=== PATIENT | male | born 1945 | race Caucasian/White ===

== ENCOUNTER 2020-09-26 10:33 | Outpatient (RCR) | payer MEDICARE, SELFPAY | END 2020-09-26 23:59 | LOC: IMMUN 10:33 | PROVIDERS: PCP Internal Medicine; Visit Provider Family Medicine | DX: Z23 Encounter for immunization (principal) | CPT/HCPCS: 0011A; 0012A ==

== ENCOUNTER 2021-06-14 19:26 | Inpatient (IN) | payer MEDICARE, SELFPAY ==
[2021-06-14 19:27] VITALS: BP 188/84; PULSE 66; RESP 18; TEMP 36.8; O2SAT 96; BMI 27.1
[2021-06-14 19:31] VITALS: BP 188/84; PULSE 67; RESP 16; TEMP 36.8; O2SAT 97
--- NOTE | 2021-06-14 19:55 | RAD_ITS ---
STUDY: X-RAY - PELVIS REASON FOR EXAM: Male, 75 years old. Pain right hip fall TECHNIQUE: One view of the pelvis was obtained. COMPARISON: None. FINDINGS: There is angulated femoral neck fracture on the right. Femoral head is located. Left hip is intact. Pelvis is intact. RAD/Pelvis 1 or 2 Views IMPRESSION: Transcervical femoral fracture. Electronically Signed: Sarita Moreno MD at 20:35 EST Tel , Service support ,
--- NOTE | 2021-06-14 19:56 | EDS_ITS ---
HPI History of Present Illness Chief Complaint: Lower Extremity Injury Narrative Narrative: 75-year-old male presents with right hip pain. He states he slipped and fell landed on his right hip. He has been unable to ambulate under his own weight since then. He states the pain in his right hip radiates to the right knee medially. Patient denies head injury or LOC. Patient states he has never had orthopedic surgery on his right hip previously. He did have a right knee scope in the past. [facility] Medical History Cochlear hearing loss Home Medications cholecalciferol (vitamin D3) [Vitamin D3] 50 mcg PO DAILY 06/14/21 [History Last Taken Unknown] doxazosin 4 mg PO DAILY 06/14/21 [History Last Taken Unknown] famotidine 20 mg PO BID 06/14/21 [History Last Taken Unknown] felodipine 10 mg PO DAILY 06/14/21 [History Last Taken Unknown] finasteride 5 mg PO DAILY 06/14/21 [History Last Taken Unknown] losartan 50 mg PO DAILY 06/14/21 [History Last Taken Unknown] sildenafil 100 mg PO DAILY PRN 06/14/21 [History Last Taken Unknown] Allergy/AdvReac Type Severity Reaction Status Date / Time No Known Allergies Allergy Verified 06/14/21 19:30 Social History Smoking Status: Former smoker ROS ROS ED Constitutional Constitutional ED: Denies chills or fever(s) Eyes Eyes: Denies blurry vision or diplopia ENT ENT ED: Denies rhinorrhea or sore throat Cardiovascular Cardiovascular: Denies chest pain or palpitations Respiratory/Chest Respiratory/Chest: Denies cough or dyspnea Gastrointestinal Gastrointestinal: Denies abdominal pain, nausea or vomiting Genitourinary Genitourinary ED: Denies dysuria or hematuria Musculoskeletal Musculoskeletal: Reports other Details: Right hip pain Integumentary Denies Abrasions or rash Neurologic Neurologic: Denies headache(s) or paresthesias EXAM Physical Exam Const Vital Signs: 06/14/21 19:27 06/14/21 19:31 06/14/21 21:33 Temperature 98.2 F 98.2 F Temperature Source Temporal Temporal Pulse Rate 66 67 Respiratory Rate 18 16 17 Blood Pressure 188/84 H 188/84 H Blood Pressure Mean 118 118 Pulse Ox 96 97 Oxygen Delivery Method Room Air Room Air Positive well nourished HEENT normocephalic and atraumatic Eyes PERRL Chest Wall inspection of chest normal and palpation of chest normal Resp normal respiratory effort and clear to auscultation bilaterally Cardio regular rate and regular rhythm Extremity Extremity Narrative: Tenderness palpation over the right hip. Limited range of motion secondary to pain. No obvious deformity. Neuro oriented x3 Sensorium / Orientation: alert Psych mental status grossly normal Skin no wounds Rashes: no rashes MDM MDM MDM Narrative Medical decision making narrative: Patient presenting with right hip pain. He had a mechanical fall and is unable to ambulate. He has tenderness of the right hip which radiates to the mid femur. I did obtain images of the right hip and the right femur on my interpretation there is an acute fracture of the right femoral neck with some displacement. Radiologist agree. CBC shows a leukocytosis of 15.8. Hemoglobin regular able. Platelets are normal. Renal function electrolytes are normal. Since patient did have white blood cell count I did check a urinalysis due to his history of BPH and this is negative for infection. Patient does not have any respiratory symptoms. His WBC is likely reactive secondary to the fall. He states he has felt otherwise well before his fall. Patient discussed with Dr. Freeman from orthopedics. Patient will be admitted to the hospitalist. Impression: 1. Mechanical fall 2. Right hip fracture 3. Leukocytosis Lab Data Attestation: I reviewed the patient's lab results. Labs: Laboratory Results - last 24 hr 06/14/21 06/14/21 06/14/21 20:07 20:07 20:54 WBC 15.8 H RBC 4.25 L Hgb 13.0 Hct 38.8 L MCV 91.3 MCH 30.6 MCHC 33.5 RDW Std Deviation 47.4 H RDW Coeff of Ash 14.0 Plt Count 246 MPV 9.3 Immature Gran % (Auto) 0.300 Neut % (Auto) 87.1 H Lymph % (Auto) 5.8 L [place] % (Auto) 5.5 Eos % (Auto) 0.9 Baso % (Auto) 0.4 Absolute Neuts (auto) 13.8 H Absolute Lymphs (auto) 0.92 Nucleated RBC % 0 Sodium 138 Potassium 3.7 Chloride 108 H Carbon Dioxide 25.0 Anion Gap 5 BUN 19 H Creatinine 1.00 Estim Creat Clear Calc 75.35 Est GFR (MDRD) Af Amer 94 Est GFR (MDRD) Non-Af 78 BUN/Creatinine Ratio 19.1 Glucose 102 Calcium 9.0 Urine Color Yellow Urine Clarity Sl. Cloudy Urine pH 6.0 Ur Specific [place] 1.015 Urine Protein 15 H Urine Glucose (UA) Normal Urine Ketones Negative Urine Occult Blood 10 H Urine Nitrite Negative Urine Bilirubin Negative Urine Urobilinogen Normal Ur Leukocyte Esterase Negative Urine RBC 0 SEEN Urine WBC 0 SEEN Ur Squamous Epith Cells 0-5 SEEN Urine Bacteria 0 SEEN Urine Mucus 0 SEEN Radiography Diagnostic Testing: Clinical Impression(s) from Imaging Studies Pelvis X-Ray 06/14/21 19:55 IMPRESSION: Transcervical femoral fracture. Electronically Signed: Sarita Moreno MD at 20:35 EST Tel , Service support , Femur X-Ray 06/14/21 20:20 IMPRESSION: Partially displaced transcervical right femoral neck fracture. at 2049 Reported and signed by: Win Ruby MD Electronically Signed: Win Ruby MD at 20:48 EST Tel , Service support , Discharge Plan Triage Chief Complaint: Lower Extremity Injury ED Provider: Chaz Mejia Dx/Rx/DC Orders Prescriptions: No Action losartan 50 mg Tablet 50 mg PO DAILY RF: 0 sildenafil 100 mg Tablet 100 mg PO DAILY PRN (Reason: Sexual Activity) RF: 0 famotidine 20 mg Tablet 20 mg PO BID RF: 0 doxazosin 4 mg Tablet 4 mg PO DAILY RF: 0 felodipine 10 mg Tablet Extended Release 24 Hr 10 mg PO DAILY RF: 0 finasteride 5 mg Tablet 5 mg PO DAILY RF: 0 cholecalciferol (vitamin D3) [Vitamin D3] 50 mcg (2,000 unit) Capsule 50 mcg PO DAILY RF: 0 Primary Care Provider: José Luis Reza
[2021-06-14] MEDS: Morphine 4 MG/ML Syringe IV ×2 (20:09→21:42)
[2021-06-14] MEDS: Ondansetron 4 MG/2 ML Vial IV (20:09)
[2021-06-14 20:18] LABS: Absolute Lymphocyte Count 0.92 X10^3/uL (0.83-4.51); Absolute Neutrophil Count 13.8 X10^3/uL (2.0-7.7); Basophil# 0.06 X10^3/uL; Basophil% 0.4 % (0-1); Eosinophil# 0.14 X10^3/uL; Eosinophils% 0.9 % (0-5); Hematocrit 38.8 % (40-54); Lymphocyte # 0.92 X10^3/ul (0.83-4.51); Lymphocyte % 5.8 % (19-41); Mean Corp Hgb Conc 33.5 g/dL (32-36); Mean Corpuscular Hgb 30.6 pg (27.0-32.0); Mean Corpuscular Volume 91.3 fL (80-94); Mean Platelet Vol. 9.3 fl (6.2-12.0); Monocyte# 0.87 X10^3/uL; Monocyte% 5.5 % (0-10); NRBC Flagged by Analyzer 0 % (0-5); Neutrophil % 87.1 % (47-70); Platelet Count 246 K/mm3 (150-450); RBC Distribution Width SD 47.4 fl (35.1-43.9); Red Blood Count 4.25 M/mm3 (4.6-6.2); White Blood Count 15.8 K/mm3 (4.4-11.0)
--- NOTE | 2021-06-14 20:20 | RAD_ITS ---
HISTORY: Right hip pain status post fall EXAMINATION/TECHNIQUE: XR Femur Min 2 Views: Right COMPARISON: Concurrent AP view of pelvis FINDINGS: Partially displaced, transcervical right femoral neck fracture with secondary distal femoral varus deformity. Normal position of femoral head within the acetabular fossa. Right hip joint space preserved. Adequate alignment of right knee. Vascular calcifications noted. RAD/Femur Min 2 Views IMPRESSION: Partially displaced transcervical right femoral neck fracture. at 2049 Reported and signed by: Win Ruby MD Electronically Signed: Win Ruby MD at 20:48 EST Tel , Service support ,
[2021-06-14 20:37] LABS: Anion Gap 5 (5-15); BUN 19 mg/dL (7-18); BUN/Creat Ratio 19.1 RATIO (10-20); Chloride 108 mmol/L (98-107); EST Glomerular Filtration Rate 78 mL/min (>60); Est Glom Filt Rate - Afr Amer 94 mL/min (>60); Estimated Creatinine Clearance 75.35 ml/min; Glucose 102 mg/dL (74-106); Potassium 3.7 mmol/L (3.5-5.1); Sodium Level 138 mmol/L (136-145)
[2021-06-14 21:33] VITALS: RESP 17
[2021-06-14 21:46] LABS: Bacteria 0 SEEN /hpf (None Seen); Color, Urine Yellow (Yellow); Glucose, Dipstick Normal (Normal); Ketone-Dipstick Negative (Negative); Leukocyte Esterase-Dipstick Negative /ul (Negative); Mucous, Urine 0 SEEN /hpf (<or=2+); Nitrite-Dipstick Negative (Negative); Occult Blood-Urine 10 /ul (Negative); Protein-Dipstick 15 mg/dl (Negative); Red Blood Cells-Urine 0 SEEN /hpf (0-5); Specific Gravity, Urine 1.015 (1.002-1.030); Urine Bilirubin Dipstick Negative (Negative); Urine Clarity Sl. Cloudy (Clear); Urine Urobilinogen Normal (Normal); White Blood Cells 0 SEEN /hpf (0-5)
[2021-06-14 21:57] LABS: Squamous Epithelial Cells - UA 0-5 SEEN /hpf (0-5)
--- NOTE | 2021-06-14 22:24 | HP.PCM.HOS_ITS ---
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 Patient slipped and fell on wet concrete. He then developed pain in his right hip. The patient could not get up after he fell. With assistance of his he got up on his knees; he used a chair thereafter. Patient realized that he could not walk the stairs thereafter. He could not bear weight on his right leg. Paramedics were called and was brought to emergency department [facility] Medical History Cochlear hearing loss Hypertension Pancreatitis Sleep apnea Home Medications cholecalciferol (vitamin D3) [Vitamin D3] 50 mcg PO DAILY 06/14/21 [History Last Taken Unknown] doxazosin 4 mg PO DAILY 06/14/21 [History Last Taken Unknown] famotidine 20 mg PO BID 06/14/21 [History Last Taken Unknown] felodipine 10 mg PO DAILY 06/14/21 [History Last Taken Unknown] finasteride 5 mg PO DAILY 06/14/21 [History Last Taken Unknown] losartan 50 mg PO DAILY 06/14/21 [History Last Taken Unknown] sildenafil 100 mg PO DAILY PRN 06/14/21 [History Last Taken Unknown] Allergy/AdvReac Type Severity Reaction Status Date / Time No Known Allergies Allergy Verified 06/14/21 19:30 Family History (Updated 06/14/21 @ 22:[address] Pete Quiroz MD) Other Heart disease Surgical History History of cochlear implant History of herniorrhaphy Hx of arthroscopic knee surgery Social History Smoking Status: Former smoker ROS ROS Narrative Constitutional: Denies fever, chills, fatigue, anorexia and change in weight Eyes: Denies blurry vision, change in eye color, change in vision, discharge from eye(s), double vision, erythema, eye pain, loss of vision or other HEENT: Denies abnormal hearing, dysphagia, ear pain, epistaxis, headache(s), hearing loss, nasal congestion, nasal discharge, post nasal drip, sinus pressure, sore throat or other Cardiovascular: Denies chest pain or palpitations. Denies dyspnea on exertion, orthopnea and paroxysmal nocturnal dyspnea Respiratory/Chest: Denies cough, excessive phlegm production, shortness of breath with exertion and wheezing Gastrointestinal: Denies abdominal pain, coffee ground emesis, constipation, diarrhea, dyspepsia, hematemesis, hematochezia, loose stools, melena, nausea, vomiting or other Genitourinary: Denies burning urination, difficulty urinating, dysuria, hematuria, nocturia, urinary frequency, urinary hesitancy, urinary incontinence, urinary urgency or other Musculoskeletal: Right hip pain. Denies myalgia. Neurologic: Denies abnormal gait, abnormal speech, confusion, disequilibrium, dizziness, focal weakness, headache(s), numbness, paresthesias, seizure-like activity, seizures, syncope, tingling, tremor(s) or other Psychiatric: Denies anxiety, depression, homicidal ideation, suicidal ideation or other Endocrinology: Denies change in body appearance, cold intolerance, excessive sweating, heat intolerance, polydipsia, polyuria or other Hematologic/Lymphatic: Denies anemia, easy bleeding, easy bruising, lympha denopathy or other Integumentary: Denies rashes Allergic/Immunologic: Denies rhinitis, hives, eczema, asthma or other Vital Signs Vital Signs Vital Signs: 06/14/21 19:27 06/14/21 19:31 06/14/21 21:33 Temperature 98.2 F 98.2 F Temperature Source Temporal Temporal Pulse Rate 66 67 Respiratory Rate 18 16 17 Blood Pressure 188/84 H 188/84 H Blood Pressure Mean 118 118 Pulse Ox 96 97 Oxygen Delivery Method Room Air Room Air Weight Weight: 96 kg Body Mass Index (BMI) 27.1 Physical Exam Narrative Physical exam: General: Well-nourished, well-developed. Head: Normocephalic, atraumatic, no tenderness Eyes: PERRLA, EOMI ENT, no trauma, moist mucous membranes, no rhinorrhea Neck: Nontender, full range of motion, no spinal tenderness, deformities, step- off CVS: Regular rate and rhythm. S1-S2 present. No murmur, gallop or rub. Respiratory : clear to auscultation bilaterally, chest wall nontender, no wheezing Abdomen: Soft, nontender, nondistended, normal bowel sounds, no masses : Deferred Back: Nontender, no CVA tenderness, no midline spinal tenderness, deformities, step-offs Extremities: Nontender full range of motion, no trauma Skin: Normal color, no trauma, abrasions Neuro: Alert, oriented, cranial nerves II through XII grossly intact; except patient is hard of hearing. Psychiatry: Normal mood. Normal affect. Not depressed. Not anxious. Results Lab / Micro Data Result Diagrams: 06/14/21 20:07 06/14/21 20:07 Labs: Laboratory Results - last 24 hr 06/14/21 20:07: WBC 15.8 H, RBC 4.25 L, Hgb 13.0, Hct 38.8 L, MCV 91.3, MCH 30.6, MCHC 33.5, RDW Std Deviation 47.4 H, RDW Coeff of Ash 14.0, Plt Count 246, MPV 9.3, Immature Gran % (Auto) 0.300, Neut % (Auto) 87.1 H, Lymph % (Auto) 5.8 L, [place] % (Auto) 5.5, Eos % (Auto) 0.9, Baso % (Auto) 0.4, Absolute Neuts (auto) 13.8 H, Absolute Lymphs (auto) 0.92, Nucleated RBC % 0 06/14/21 20:07: Sodium 138, Potassium 3.7, Chloride 108 H, Carbon Dioxide 25.0, Anion Gap 5, BUN 19 H, Creatinine 1.00, Estim Creat Clear Calc 75.35, Est GFR (MDRD) Af Amer 94, Est GFR (MDRD) Non-Af 78, BUN/Creatinine Ratio 19.1, Glucose 102, Calcium 9.0 06/14/21 20:54: Urine Color Yellow, Urine Clarity Sl. Cloudy, Urine pH 6.0, Ur Specific [place] 1.015, Urine Protein 15 H, Urine Glucose (UA) Normal, Urine Ketones Negative, Urine Occult Blood 10 H, Urine Nitrite Negative, Urine Bilirubin Negative, Urine Urobilinogen Normal, Ur Leukocyte Esterase Negative, Urine RBC 0 SEEN, Urine WBC 0 SEEN, Ur Squamous Epith Cells 0-5 SEEN, Urine Bacteria 0 SEEN, Urine Mucus 0 SEEN Radiology Impression Pelvis X-Ray 06/14/21 19:55 IMPRESSION: Transcervical femoral fracture. Electronically Signed: Sarita Moreno MD at 20:35 EST Tel , Service support , Femur X-Ray 06/14/21 20:20 IMPRESSION: Partially displaced transcervical right femoral neck fracture. at 2049 Reported and signed by: Win Ruby MD Electronically Signed: Win Ruby MD at 20:48 EST Tel , Service support , Assessment & Plan Assessment/Plan (1) Femoral neck fracture: QUALIFIERS: Encounter type: initial encounter Fracture type: closed Laterality: right Qualified Code(s): S72.001A - Fracture of unspecified part of neck of right femur, initial encounter for closed fracture PLAN: Partially displaced transcervical right femoral neck fracture. A femoral x-ray was independently interpreted and agree radiologist interp retation a partial displaced transcervical right femoral neck fracture. Pelvis x-ray was also independently interpreted and I agree with radiologist interpretation. Emergent department doctor discussed the case with Dr. Freeman. Inpatient consult for orthopedic surgery. Morphine IV and Tylenol as needed ordered. Bowel protocol and antiemetics IV ordered. Keep n.p.o. While n.p.o. lactated Ringer's ordered. Check vitamin D level. Preoperative EKG unremarkable CBC showed white count of 15.8 likely reactive. Trend. Hypertension Blood pressure is not within goal Home blood pressure medication continued. As needed hydralazine ordered. Trend blood pressure and adjust blood pressure medications. ACS NSQIP surgical risk calculator with below surgical risk. Please see paper printout. BPH: Cardura continued GERD: Famotidine continued DVT prophylaxis: SCD ordered Charges/Coding Visit Charges Inpatient E&M: 52987 Init Hosp L3
--- NOTE | 2021-06-14 22:26 | EKG12_ITS ---
Test Reason : PRE-OP Blood Pressure : / mmHG Vent. Rate : 070 BPM Atrial Rate : 070 BPM P-R Int : 188 ms QRS Dur : 122 ms QT Int : 446 ms P-R-T Axes : 033 -59 030 degrees QTc Int : 481 ms Normal sinus rhythm Left axis deviation Inferior infarct , age undetermined Abnormal ECG Confirmed by HORTENCIA DELGADO ([id number]), video tape editor JOSE PAULSON ([id number]) on 06/15/2021 11:11:38 AM Referred By: LISA Confirmed By:HORTENCIA DELGADO
[2021-06-14 22:40] VITALS: BP 148/68; PULSE 80; RESP 17; TEMP 37.1; O2SAT 98
--- NOTE | 2021-06-14 22:40 | ED.RN ---
Was already medicated for pain --
--- NOTE | 2021-06-14 22:54 | ED.RN ---
Morphoine had duplicate order - only 2 total doses given in ER
[2021-06-14 23:53] VITALS: O2SAT 98
[2021-06-15] VITALS (12 sets, daily range): BP systolic 134–182; BP diastolic 68–86; PULSE 71–83; RESP 16–18; TEMP 36.6–37.4; O2SAT 92–98; BMI 26.9
--- NOTE | 2021-06-15 00:41 | PCS.PANDOC ---
PANDEMIC DOCUMENTATION INITIATED: Date: 03/16/2021 Time: 190
[2021-06-15] MEDS: Morphine 2 MG/ML Syringe IV ×5 (00:56→14:09)
[2021-06-15] MEDS: 0.9% Saline Lock 10 ML Syringe IV ×2 (00:57→05:30)
[2021-06-15] MEDS: Lactated Ringers 1,000 ML 50 ML IV (00:58)
[2021-06-15 07:18] LABS: Absolute Lymphocyte Count 0.83 X10^3/uL (0.83-4.51); Absolute Neutrophil Count 8.7 X10^3/uL (2.0-7.7); Basophil# 0.07 X10^3/uL; Basophil% 0.7 % (0-1); Eosinophil# 0.15 X10^3/uL; Eosinophils% 1.4 % (0-5); Hematocrit 38.9 % (40-54); Lymphocyte # 0.83 X10^3/ul (0.83-4.51); Lymphocyte % 7.8 % (19-41); Mean Corp Hgb Conc 33.4 g/dL (32-36); Mean Corpuscular Hgb 30.3 pg (27.0-32.0); Mean Corpuscular Volume 90.7 fL (80-94); Mean Platelet Vol. 9.3 fl (6.2-12.0); Monocyte# 0.88 X10^3/uL; Monocyte% 8.2 % (0-10); NRBC Flagged by Analyzer 0 % (0-5); Neutrophil # 8.71 X10^3/uL (2.7-7.7); Neutrophil % 81.6 % (47-70); Platelet Count 247 K/mm3 (150-450); RBC Distribution Width SD 47.1 fl (35.1-43.9); Red Blood Count 4.29 M/mm3 (4.6-6.2); White Blood Count 10.7 K/mm3 (4.4-11.0)
[2021-06-15 07:44] LABS: Anion Gap 5 (5-15); BUN 15 mg/dL (7-18); BUN/Creat Ratio 15.9 RATIO (10-20); Calcium,Total 8.7 mg/dL (8.5-10.1); Chloride 107 mmol/L (98-107); Creatinine, Serum 0.94 mg/dL (0.70-1.30); EST Glomerular Filtration Rate 83 mL/min (>60); Est Glom Filt Rate - Afr Amer 100 mL/min (>60); Estimated Creatinine Clearance 77.92 ml/min; Glucose 98 mg/dL (74-106); Potassium 3.8 mmol/L (3.5-5.1); Sodium Level 138 mmol/L (136-145)
[2021-06-15] MEDS: amLODIPine 10 MG Tablet PO (08:40)
[2021-06-15] MEDS: Losartan Potassium 50 MG Tablet PO (08:40)
[2021-06-15] MEDS: Doxazosin 4 MG Tablet PO (08:40)
[2021-06-15 09:04] LABS: Vitamin D,25 Hydroxy 37.7 ng/mL
--- NOTE | 2021-06-15 11:00 | CASEMGMT ---
ILIANA STEVENS Face to Face with patient for initial transition planning/care coordination assessment. RN HILDA introduced self and role at [facility]. Patient lying in bed, alert and oriented, at bedside. Patient willing to participate in assessment and is able to answer all questions appropriately. Care providers, pharmacy, and demographics verified. Patient wishes to discharge home but would be willing to go to rehab unit if needed. Patient states he has no further needs or concerns at this time. CM to follow for discharge planning needs that may arise. PCP: [facility] Specialists: assistant prosecuting attorney and intelligence specialist at [place] Preferred Pharmacy: [place] in [place] Insurance: [facility] Prescription Benefit: none Living Will/HPOA: none LNOK: Living Arrangements: patient lives with in a 2 story home with access for bed and bath on first floor. Patient was independent at home. Transportation: DME/HHC: Patient has raised toilet at home. No previous HHC or SNF. Will monitor for need for Rehab unit vs SNF vs HHC. Disposition Plan: TBD pending progress with therapy Alexandra GILBERT, RN, CM
--- NOTE | 2021-06-15 12:25 | CONS.ORTHO ---
HPI Consult Data Date of Consult: 06/15/21 HPI Narrative HPI Narrative: DORIS DAVIS, is a 75 M who presents with right hip pain and inability to ambulate after a slip and fall getting out of the hot tub yesterday at his home where he resides with his . He reported significant pain with attempted ambulation although he did attempt to bear weight using a chair as a walker. He was brought to [facility] emergency department where x-rays revealed a displaced right femoral neck fracture. He was admitted under the service of the hospitalist. I was consulted from the emergency department. Patient is a community ambulator without assistive device. Denies any antecedent hip or groin pain. Denies prior treatment for osteoarthritis of the hip. 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 [facility]LY [facility] Medical History Cochlear hearing loss Hypertension Pancreatitis Sleep apnea Home Medications cholecalciferol (vitamin D3) [Vitamin D3] 50 mcg PO DAILY 06/14/21 [History Last Taken Unknown] doxazosin 4 mg PO DAILY 06/14/21 [History Last Taken Unknown] famotidine 20 mg PO BID 06/14/21 [History Last Taken Unknown] felodipine 10 mg PO DAILY 06/14/21 [History Last Taken Unknown] finasteride 5 mg PO DAILY 06/14/21 [History Last Taken Unknown] losartan 50 mg PO DAILY 06/14/21 [History Last Taken Unknown] sildenafil 100 mg PO DAILY PRN 06/14/21 [History Last Taken Unknown] Allergy/AdvReac Type Severity Reaction Status Date / Time No Known Allergies Allergy Verified 06/14/21 19:30 Family History (Updated 06/14/21 @ 22:[address] Pete Quiroz MD) Other Heart disease Surgical History History of cochlear implant History of herniorrhaphy Hx of arthroscopic knee surgery Social History Smoking Status: Former smoker ROS ROS Narrative 10 point review of systems obtained, negative unless otherwise noted in HPI. Vital Signs Vital Signs Vital Signs: 06/14/21 19:27 06/14/21 19:31 06/14/21 21:33 Temperature 98.2 F 98.2 F Temperature Source Temporal Temporal Pulse Rate 66 67 Respiratory Rate 18 16 17 Respiratory Effort Respiratory Depth Respiratory Pattern Blood Pressure 188/84 H 188/84 H Blood Pressure [BP] Blood Pressure Mean 118 118 Blood Pressure Mean [BP] Blood Pressure Source Blood Pressure Source [BP] Blood Pressure Position Blood Pressure Position [BP] Blood Pressure Location Blood Pressure Location [BP] Pulse Ox 96 97 Oxygen Delivery Method Room Air Room Air 06/14/21 22:40 06/14/21 23:53 06/15/21 00:35 Temperature 98.7 F 98.3 F Temperature Source Oral Oral Pulse Rate 80 72 Respiratory Rate 17 18 Respiratory Effort Respiratory Depth Respiratory Pattern Blood Pressure 148/68 H 179/84 H Blood Pressure [BP] Blood Pressure Mean 94 115 Blood Pressure Mean [BP] Blood Pressure Source Blood Pressure Source [BP] Blood Pressure Position Blood Pressure Position [BP] Blood Pressure Location Blood Pressure Location [BP] Pulse Ox 98 98 97 Oxygen Delivery Method Room Air Room Air Room Air 06/15/21 05:25 06/15/21 08:12 06/15/21 08:27 Temperature 99.4 F H 98.2 F Temperature Source Oral Oral Pulse Rate 71 80 Respiratory Rate 16 16 Respiratory Effort Normal Respiratory Depth Normal Respiratory Pattern Normal Blood Pressure 182/84 H 168/84 H Blood Pressure [BP] Blood Pressure Mean 116 112 Blood Pressure Mean [BP] Blood Pressure Source Monitor Blood Pressure Source [BP] Blood Pressure Position Semi-Fowlers Blood Pressure Position [BP] Blood Pressure Location Right Arm Blood Pressure Location [BP] Pulse Ox 93 93 Oxygen Delivery Method Room Air Room Air Room Air 06/15/21 10:32 Temperature Temperature Source Pulse Rate 80 Respiratory Rate 16 Respiratory Effort Respiratory Depth Respiratory Pattern Blood Pressure Blood Pressure [BP] 164/73 H Blood Pressure Mean Blood Pressure Mean [BP] 103 Blood Pressure Source Blood Pressure Source [BP] Monitor Blood Pressure Position Blood Pressure Position [BP] Semi-Fowlers Blood Pressure Location Blood Pressure Location [BP] Right Arm Pulse Ox 92 Oxygen Delivery Method Room Air Weight Weight: 204 lb 6.4 oz Body Mass Index (BMI) 26.9 Physical Exam Narrative General -A&Ox3, NAD, appears stated age. Vital signs stable, afebrile. Respiratory -normal work of breathing, no intercostal retractions. CV -pulses regular, brisk capillary refill ?4 limbs. Abdomen-soft, nontender, nondistended. No guarding, rigidity, rebound tenderness. Musculoskeletal/neurologic -full range of motion nontender throughout bilateral upper extremities, left lower extremity with full sensation and strength in all dermatomes and myotomes. No midline cervical tenderness. Right lower extremity-right lower extremity shortened, externally rotated and abducted. Pain with logroll of the right lower extremity. Nontender throughout the right knee femoral shaft, tibial shaft and right foot/ankle. Brisk capillary refill. Sensation intact light touch L3-S1 dermatomes. DF, PF, EHL intact. DP, PT 2+. Pelvis is stable, nontender. Skin is intact without lacerations, abrasions. No ecchymosis noted. Lab / Micro Data Result Diagrams: 06/15/21 06:26 06/15/21 06:26 Labs: Laboratory Results - last 24 hr 06/14/21 20:07: WBC 15.8 H, RBC 4.25 L, Hgb 13.0, Hct 38.8 L, MCV 91.3, MCH 30.6, MCHC 33.5, RDW Std Deviation 47.4 H, RDW Coeff of Ash 14.0, Plt Count 246, MPV 9.3, Immature Gran % (Auto) 0.300, Neut % (Auto) 87.1 H, Lymph % (Auto) 5.8 L, [place] % (Auto) 5.5, Eos % (Auto) 0.9, Baso % (Auto) 0.4, Absolute Neuts (auto) 13.8 H, Absolute Lymphs (auto) 0.92, Nucleated RBC % 0 06/14/21 20:07: Sodium 138, Potassium 3.7, Chloride 108 H, Carbon Dioxide 25.0, Anion Gap 5, BUN 19 H, Creatinine 1.00, Estim Creat Clear Calc 75.35, Est GFR (MDRD) Af Amer 94, Est GFR (MDRD) Non-Af 78, BUN/Creatinine Ratio 19.1, Glucose 102, Calcium 9.0 06/14/21 20:54: Urine Color Yellow, Urine Clarity Sl. Cloudy, Urine pH 6.0, Ur Specific [place] 1.015, Urine Protein 15 H, Urine Glucose (UA) Normal, Urine Ketones Negative, Urine Occult Blood 10 H, Urine Nitrite Negative, Urine Bilirubin Negative, Urine Urobilinogen Normal, Ur Leukocyte Esterase Negative, Urine RBC 0 SEEN, Urine WBC 0 SEEN, Ur Squamous Epith Cells 0-5 SEEN, Urine Bacteria 0 SEEN, Urine Mucus 0 SEEN 06/15/21 06:26: WBC 10.7, RBC 4.29 L, Hgb 13.0, Hct 38.9 L, MCV 90.7, MCH 30.3, MCHC 33.4, RDW Std Deviation 47.1 H, RDW Coeff of Ash 14.0, Plt Count 247, MPV 9.3, Immature Gran % (Auto) 0.300, Neut % (Auto) 81.6 H, Lymph % (Auto) 7.8 L, [place] % (Auto) 8.2, Eos % (Auto) 1.4, Baso % (Auto) 0.7, Absolute Neuts (auto) 8.7 H, Absolute Lymphs (auto) 0.83, Nucleated RBC % 0 06/15/21 06:26: Sodium 138, Potassium 3.8, Chloride 107, Carbon Dioxide 26.0, Anion Gap 5, BUN 15, Creatinine 0.94, Estim Creat Clear Calc 77.92, Est GFR (MDRD) Af Amer 100, Est GFR (MDRD) Non-Af 83, BUN/Creatinine Ratio 15.9, Glucose 98, Calcium 8.7 06/15/21 07:48: Vitamin D 25-Hydroxy 37.7 Micro: Microbiology 06/14/21 23:56 Nasal Secretion SARS-CoV-2 Antigen (Rapid) - Final Radiology Impression Pelvis X-Ray 06/14/21 19:55 IMPRESSION: Transcervical femoral fracture. Electronically Signed: Sarita Moreno MD at 20:35 EST Tel , Service support , Femur X-Ray 06/14/21 20:20 IMPRESSION: Partially displaced transcervical right femoral neck fracture. at 204 Reported and signed by: Win Ruby MD Electronically Signed: Win Ruby MD at 20:48 EST Tel , Service support , Assessment & Plan Assessment/Plan (1) Femoral neck fracture: QUALIFIERS: Encounter type: initial encounter Fracture type: closed Laterality: right Qualified Code(s): S72.001A - Fracture of unspecified part of neck of right femur, initial encounter for closed fracture PLAN: -Patient sustained a displaced right femoral neck fracture, closed injury and neurovascularly intact -Patient is preoperatively optimized from a medical standpoint. -I recommended surgical intervention in the form of right hip hemiarthroplasty. I reviewed the risks, benefits, alternatives procedure with the patient at length. He agreed to proceed. Risks include but are not limited to bleeding, infection, loss of life or limb, instability, persistent pain, need for additional surgery, failure of orthopedic hardware, neurovascular injury, DVT or PE, limb length discrepancy. -N.p.o., maintenance IV fluids -Ancef 2 g on-call to the OR -Type and screen Thank you for this consultation.
--- NOTE | 2021-06-15 15:30 | HIP_PTH ---
PATIENT: DORIS DAVIS LOC: MS2 U#:[id number] AGE/SX: 75/M ROOM: [facility] RE06/14/[address]: Dr. Artem Bal DO : 1945 BED: 1 DIS: 06/17/2021 SPEC #: [id number] RECD: 06/16/21 07:52 STATUS: PAOLA RERiki #: [id number] EDD: 06/15/21 15:[address]: Bull Freeman DEPT: SURGICAL PATHOLOGY RECD BY: Mame Mata ENTERED: 06/16/21 08:30 SP TYPE: TOTAL HIP OTHR DR: MD Dr. Win Melendez DO Dr. Nicholas Spittle, DO Dr. Victor Velasquez, MD Tissues: Hip, NOS Procedures: Decalcification bone/plaque Surgery Specimen Level IV Comments: @ Ordering doctor for DEC edited from to @ carol MCCARTHY at 06/16/21 141 @ Ordering doctor for SUIV edited from to @ carol MCCARTHY at 06/16/21 141 @ Submitting doctor edited from to @ carol MCCARTHY at 06/16/21 1417 HEADER OPERATION: Right hip hemiarthroplasty PRE-OP DIAGNOSIS: Femoral neck fracture TISSUE SUBMITTED: Right femoral head MICROSCOPIC DIAGNOSIS Right femoral head fracture, total hip resection: Consistent with organizing fracture callus. Mild synovial hyperplasia. AM:alma delia 06/19/2021 MICROSCOPIC DESCRIPTION Slides are reviewed. GROSS DESCRIPTION Received is one container labeled with the patient's name and designated right femoral head. The specimen consists of a peñaloza femoral head measuring 5 x 5 x 4.5 cm. The articular surface is smooth. Resection margin is irregular and hemorrhagic. A piece of soft tissue is noted on the top of femoral head measuring 2 x 1 x 0.5 cm. Also present in the specimen container are multiple detached pieces of bone measuring in aggregate 4.5 x 4 x 1.5 cm. Landscape H[employer] Instructor sections are submitted in three cassettes as follows: 1 - soft tissue, entirely submitted, 2 - detached pieces of bone, 3 - femoral head. Cassettes 2 and 3 are submitted after decalcification. / SJ:alma delia 06/16/21 TC:5 CPT: 77139, 01370
[2021-06-15] MEDS: Cefazolin 2 GM in 0.9% Normal Saline 100 ML IV (15:44)
[2021-06-15] MEDS: Bupivacaine Mpf 0.5% 30 ML VIAL (17:17)
--- NOTE | 2021-06-15 17:43 | PCM.PN.HOSP ---
Subjective Subjective Patient was seen and examined earlier today, today he underwent a right hip hemiarthroplasty. Patient was seen and examined before surgery and appeared to be medically stable. He did complain of pain in his right leg due to muscle spasm Objective Data Objective Data Vital Signs: Vital Signs Temp Pulse Resp BP Pulse Ox 98.2 F 78 18 169/71 H 94 06/15/21 13:59 06/15/21 13:59 06/15/21 13:59 06/15/21 13:59 06/15/21 13:59 Oxygen Delivery Method Room Air Weight: 92.714 kg Body Mass Index (BMI) 26.9 Intake & Output: Intake and Output for Last 24 Hours 06/13/21 06/14/21 06/15/21 23:59 23:59 23:59 Intake Total 160 / 160 Output Total 2600 / 2600 Balance -2440 / -2440 Lab / Micro Data Result Diagrams: 06/15/21 06:26 06/15/21 06:26 Labs: Laboratory Results - last 24 hr 06/14/21 20:07: WBC 15.8 H, RBC 4.25 L, Hgb 13.0, Hct 38.8 L, MCV 91.3, MCH 30.6, MCHC 33.5, RDW Std Deviation 47.4 H, RDW Coeff of Ash 14.0, Plt Count 246, MPV 9.3, Immature Gran % (Auto) 0.300, Neut % (Auto) 87.1 H, Lymph % (Auto) 5.8 L, [place] % (Auto) 5.5, Eos % (Auto) 0.9, Baso % (Auto) 0.4, Absolute Neuts (auto) 13.8 H, Absolute Lymphs (auto) 0.92, Nucleated RBC % 0 06/14/21 20:07: Sodium 138, Potassium 3.7, Chloride 108 H, Carbon Dioxide 25.0, Anion Gap 5, BUN 19 H, Creatinine 1.00, Estim Creat Clear Calc 75.35, Est GFR (MDRD) Af Amer 94, Est GFR (MDRD) Non-Af 78, BUN/Creatinine Ratio 19.1, Glucose 102, Calcium 9.0 06/14/21 20:54: Urine Color Yellow, Urine Clarity Sl. Cloudy, Urine pH 6.0, Ur Specific [place] 1.015, Urine Protein 15 H, Urine Glucose (UA) Normal, Urine Ketones Negative, Urine Occult Blood 10 H, Urine Nitrite Negative, Urine Bilirubin Negative, Urine Urobilinogen Normal, Ur Leukocyte Esterase Negative, Urine RBC 0 SEEN, Urine WBC 0 SEEN, Ur Squamous Epith Cells 0-5 SEEN, Urine Bacteria 0 SEEN, Urine Mucus 0 SEEN 06/15/21 06:26: WBC 10.7, RBC 4.29 L, Hgb 13.0, Hct 38.9 L, MCV 90.7, MCH 30.3, MCHC 33.4, RDW Std Deviation 47.1 H, RDW Coeff of Ash 14.0, Plt Count 247, MPV 9.3, Immature Gran % (Auto) 0.300, Neut % (Auto) 81.6 H, Lymph % (Auto) 7.8 L, [place] % (Auto) 8.2, Eos % (Auto) 1.4, Baso % (Auto) 0.7, Absolute Neuts (auto) 8.7 H, Absolute Lymphs (auto) 0.83, Nucleated RBC % 0 06/15/21 06:26: Sodium 138, Potassium 3.8, Chloride 107, Carbon Dioxide 26.0, Anion Gap 5, BUN 15, Creatinine 0.94, Estim Creat Clear Calc 77.92, Est GFR (MDRD) Af Amer 100, Est GFR (MDRD) Non-Af 83, BUN/Creatinine Ratio 15.9, Glucose 98, Calcium 8.7 06/15/21 07:48: Vitamin D 25-Hydroxy 37.7 06/15/21 14:14: Blood Type B POSITIVE, Antibody Screen NEGATIVE Micro: Microbiology 06/14/21 23:56 Nasal Secretion SARS-CoV-2 Antigen (Rapid) - Final Radiography Diagnostic Testing: Radiology Impression Pelvis X-Ray 06/14/21 19:55 IMPRESSION: Transcervical femoral fracture. Electronically Signed: Sarita Moreno MD at 20:35 EST Tel , Service support , Femur X-Ray 06/14/21 20:20 IMPRESSION: Partially displaced transcervical right femoral neck fracture. at 2049 Reported and signed by: Win Ruby MD Electronically Signed: Win Ruby MD at 20:48 EST Tel , Service support , Physical Exam Const alert, oriented x3, no apparent distress and healthy appearing General Appearance: cooperative, well kempt and well developed Orientation / Consciousness: awake, oriented to person, oriented to place and oriented to time HEENT normocephalic and moist oral mucous membranes Eyes PERRL, EOMs intact bilaterally and conjunctivae normal Neck nuchal rigidity, supple, no JVD, thyroid normal and no carotid bruits General: trachea midline Resp normal respiratory effort and clear to auscultation bilaterally Auscultation: Negative for rales, rhonchi or wheezes Cardio regular rate, regular rhythm, no murmurs, no rub and no gallops GI normal to inspection, nondistended, normoactive bowel sounds, soft to palpation, non-tender and non-distended Extremity no clubbing, cyanosis or edema Skin no rashes or lesions noted General Skin Exam: no breakdown Neuro oriented x3, CN's II-XII intact bilaterally, no focal motor deficits and no sensory deficits noted Sensorium / Orientation: awake and alert Speech: speech normal Psych thought process normal and affect normal Assessment & Plan Assessment/Plan (1) Femoral neck fracture: QUALIFIERS: Encounter type: initial encounter Fracture type: closed Laterality: right Qualified Code(s): S72.001A - Fracture of unspecified part of neck of right femur, initial encounter for closed fracture PLAN: 1. Right femoral neck fracture-again patient is undergoing a hemiarthroplasty on his right hip today-postop day 0, PT and OT will see the patient, he may have to go to an extended care facility or inpatient rehab if he is not able to go home. #2 essential hypertension #3 BPH #4 obstructive sleep apnea-not sure if the patient uses BiPAP or CPAP at home, I will have to talk with him tomorrow concerning this. I tried contacting the today but it went directly to voicemail. Charges/Coding Visit Charges Inpatient E&M: 30728 Subs Hosp L2
--- NOTE | 2021-06-15 17:57 | RAD_ITS ---
STUDY: X-RAY - PELVIS AND RIGHT HIP REASON FOR EXAM: Male, 75 years old. Post-op right cezar hip TECHNIQUE: 2 views of the pelvis and hip. COMPARISON: June 14, 2021 right hip x-ray FINDINGS: There is a non-specific bowel gas pattern. Normal visualized soft tissue structures. Normal bilateral iliac wings, sacroiliac joints and visualized sacrum. Normal bilateral superior and inferior pubic rami. Normal pubic symphysis. Normal bilateral ischial tuberosities. Since prior study there is been a right hip arthroplasty. There is postoperative change in and skin nic. There is calcification of the bilateral iliac arteries. There is minimal narrowing of the left hip joint. RAD/Hip Min 2 Views (Portable) IMPRESSION: Status post right hip arthroplasty in anatomic position and alignment with postoperative change. Electronically Signed: Emilee Jones MD at 4:08 EST Tel , Service support ,
--- NOTE | 2021-06-15 18:28 | OP.PCM_ITS ---
Problems Associated Problem List Diagnoses (1) Femoral neck fracture: Report of Operation Date of Procedure: 06/15/21 Description of Surgical Findings:: Preoperative diagnosis: Right displaced femoral neck fracture Postoperative diagnosis: Right displaced femoral neck fracture Procedure: Right hip hemiarthroplasty Surgeon: Bull Freeman DO Hand Shoe Cutter: Sri Polo PA-C Anesthesia: General endotracheal Anesthesiologist: Dr. Zamudio Complications: None Drains: None Estimated blood loss: 300 cc Urinary output: Per anesthesia record IV fluids: Per anesthesia record Specimens: None Surgical implants: [place] Accolade two 132 degree neck angle hip stem size #7, Unitrax neck adjustment sleeve + 4mm, Unitrax endoprosthesis head component outer diameter 52 mm Indications: This is a 75-year-old male who sustained a ground-level fall after getting out of a hot tub yesterday 06/14/2021. He landed on his right side. He was brought to [facility] where x-rays revealed a displaced right femoral neck fracture. He was admitted under the service of the hospitalist. I was consulted to see the patient for surgical recommendations. I recommended a right hip hemiarthroplasty due to the pattern and displacement. I reviewed the procedure with the patient, its risk, benefits, alternatives. Risks included but were not limited to bleeding, infection, loss of life or limb, risk of anesthesia, neurovascular injury, persistent pain, instability, need for additional surgery, failure of orthopedic hardware, loosening, osteolysis, limb length discrepancy, need for assistive devices long-term. Patient expressed understanding wish to proceed with surgery. Description of procedure: Prior to the procedure, patient was brought to the preoperative holding area where patient was identified by name, medical record number and date of . I confirmed the side, site, operation to be performed with the patient. Informed consent was confirmed, All questions were answered to patient satisfaction. The operative extremity was marked. He was also seen by anesthesia staff and anesthesia consent obtained.At time of the operative procedure, pt was brought to the operative suite. General anesthesia was induced on the hospital bed and endotracheal tube placed. After adequate anesthesia, patient was transferred to a standard operating table. He was then positioned in the lateral decubitus position with the right side up and held in position by a pegboard positioning system. All bony prominences were well-padded. A axillary roll was placed under the patient's left axilla. Peroneal nerve was free with a blanket on the nonoperative extremity. Leg lengths were reproduced from patient's position when he was supine. The right lower extremity was then prepped and draped in normal, sterile orthopedic fashion. We performed a timeout with all parties in attendance in agreement with the side, site, and operation to be performed. No concerns were voiced and would like to proceed. 2 g Ancef was administered prior to incision by anesthesia staff. I first marked an incision along the lateral aspect of the hip centered over the greater trochanteric tip. In standard posterior approach, a curvilinear incision was made above the trochanter. An approximately 15 cm incision was made. Skin was sharply incised with a 10 blade scalpel carried deep through subcutaneous layers to the level of the IT band. Gelpi retractors were then placed. A New was used to expose the IT band. Bovie cautery was then used for hemostasis and then to open the IT band. This was opened in line with the incision. A Charnley retractor was then placed. Sciatic nerve is free. The trochanteric bursa was then debrided. This identified the short external rotators after internal rotation of the hip. The fracture site was easily iden tified at this point. Short external rotators were taken down and tagged for later repair. Hip capsule was also tagged for repair with a stay suture. We then freshened the neck cut with a sagittal saw. Anterior and posterior acetabular retractors were placed to gain access to the femoral head. A corkscrew was used to remove the head. Any remaining debris was debrided from the acetabulum. We then placed the femoral head on the back table for measurement. We did use trial heads and selected a final size 52 with good suction fit. Box chisel was then utilized to gain access to the femoral canal. Canal finder was placed. Sequential broaches were used and press-fit manner. A final size 7 achieved excellent vertical and rotational stability. We then trialed with a standard offset stem. Standard offset did achieve excellent stability and reproduction of abductor tension. Leg lengths appeared appropriate with a size +4 neck length. Trials were then removed. We copiously irrigated the wound with normal saline solution and irrisept solution. A size 7 stem was then impacted with excellent fixation. Final head was then impacted over the Peoples taper neck. Final reduction was performed. A posterior capsular repair was performed with #2 Ethibond suture. Periarticular structures and subcutaneous structures were anesthetized with 30 cc total of 0.5% plain bupivacaine. IT band was closed watertight with #1 Vicryl suture. Deeper fascial layers were closed with 0 Vicryl suture in interrupted fashion. Subcutaneous layers were reapproximated with 2-0 Vicryl suture and skin reapproximated with skin nic. A silver dressing was applied. Patient tolerated procedure well without complication. He was positioned back in the supine position on his hospital bed and subsequently extubated safely. He was transferred to PACU in stable condition. An abduction pillow was placed between the patient's leg to be worn while he is in bed. Need for skilled assistant department manager: Sri Polo PA-C was critical to the outcome of the case. During the course of the procedure the physician assistant department manager played a vital role. Her intimate knowledge of my steps in the procedure aided in safe and expedient completion of the procedure. The PA played a vital role in positioning particularly in obtaining the appropriate positioning. The PA was also vital in the retraction of soft tissues during the exposure and projecting vital structures. The PA was also vital and protecting soft tissues during times of bony cuts. She also played a vital role in closure with my direct supervision. The PA was also important during reduction and dislocation of the joint and trials intraoperatively. Post Operative Plan: Weightbearing: Weightbearing as tolerated right lower extremity, posterior hip precautions. Abduction pillow while in bed Antibiotics: Ancef 1 g every 8 hours x 3 doses DVT Prophylaxis: Lovenox 40 mg subcutaneous daily starting tomorrow 06/16/2021 Casiano: Per primary, recommending discontinuation on postoperative day #1 to mitigate risk of postoperative UTI Dressing: Maintain silver dressing x7 days X-Rays: PACU x-rays were reviewed demonstrated well-positioned right hip hemiar throplasty implant. Follow-up 2-3 weeks x-rays in the office. Follow-up: 2-3 weeks weeks in my office for staple removal
[2021-06-15] MEDS: Acetaminophen 325 MG Tablet 650 MG PO (20:56)
[2021-06-15] MEDS: Cefazolin 1 GM/50 ML BAG IV (21:14)
[2021-06-15] MEDS: Famotidine 20 MG Tablet PO (21:15)
[2021-06-16] VITALS (7 sets, daily range): BP systolic 141–174; BP diastolic 68–74; PULSE 65–90; RESP 16–18; TEMP 36.7–37.6; O2SAT 85–97
[2021-06-16] MEDS: Lactated Ringers 1,000 ML 50 ML IV (01:31)
[2021-06-16] MEDS: Morphine 2 MG/ML Syringe IV ×3 (01:34→12:04)
[2021-06-16] MEDS: 0.9% Saline Lock 10 ML Syringe IV ×4 (01:36→12:04)
[2021-06-16] MEDS: hydrALAZINE 20 MG/ML Vial 5 MG IV (05:40)
[2021-06-16] MEDS: Cefazolin 1 GM/50 ML BAG IV (05:41)
[2021-06-16] MEDS: Enoxaparin 40 MG/0.4 ML Syringe SC (05:43)
--- NOTE | 2021-06-16 05:47 | NURSING ---
unable to get pt out of bed. pt unable to hear because he needs hearing aid batteries. pt unable to follow directions. pt used foul language.
[2021-06-16] MEDS: Cholecalciferol (VIT D3) 25 MCG TABLET (1,000 UNITS) 50 MCG PO (09:26)
[2021-06-16] MEDS: amLODIPine 10 MG Tablet PO (09:27)
[2021-06-16] MEDS: Finasteride 5 MG Tablet PO (09:27)
[2021-06-16] MEDS: Famotidine 20 MG Tablet PO ×2 (09:27→22:12)
[2021-06-16] MEDS: Losartan Potassium 50 MG Tablet PO (09:27)
[2021-06-16] MEDS: Doxazosin 4 MG Tablet PO (09:27)
[2021-06-16 12:36] LABS: Hematocrit 36.5 % (40-54); Hemoglobin 12.5 g/dL (13.0-16.5); Mean Corp Hgb Conc 34.2 g/dL (32-36); Mean Corpuscular Hgb 30.9 pg (27.0-32.0); Mean Corpuscular Volume 90.1 fL (80-94); Mean Platelet Vol. 9.9 fl (6.2-12.0); Platelet Count 217 K/mm3 (150-450); RBC Distribution Width CV 13.9 % (11.6-14.6); Red Blood Count 4.05 M/mm3 (4.6-6.2); White Blood Count 14.4 K/mm3 (4.4-11.0)
--- NOTE | 2021-06-16 12:59 | CASEMGMT ---
Addendum entered by Mariaelena Thomas 06/16/21 13:53: SW spoke w/physician, plan will be for pt to go to rehab tomorrow. SW let pt and know plan will be for pt to go to rehab tomorrow. SW also left a message for Maru in rehab letting her know plan will be for pt to come to rehab tomorrow. LUIS E Nixon Original Note: SW spoke w/pt and in room in room in regard to discharge plan. Pt is agreeing to go to inpt rehab at this time. Inpt rehab is able to take pt, and will be able to take pt today. SW let physician know. LUIS E Nixon
--- NOTE | 2021-06-16 13:07 | PN.ORTHO_ITS ---
Subjective Subjective Patient seen and examined this afternoon. Up to the chair eating lunch at time of examination. Reports some pain and spasm over the night. Was able to ambulate cross the room today with therapy. States pain is not controlled at this point. Denies fevers, chills, nausea vomiting, chest pain or shortness of breath. Objective Data Objective Data Vital Signs: Vital Signs Temp Pulse Resp BP Pulse Ox 99.0 F 90 16 141/73 H 95 06/16/21 09:25 06/16/21 09:25 06/16/21 09:25 06/16/21 09:25 06/16/21 09:25 Oxygen Flow Rate (L/min) 1.5 Oxygen Delivery Method Room Air Weight: 204 lb 6.4 oz Body Mass Index (BMI) 26.9 Intake & Output: Intake and Output for Last 24 Hours 06/14/21 06/15/21 06/16/21 23:59 23:59 23:59 Intake Total 1210 / 1210 408.33 / 408.33 Output Total 3650 / 3650 300 / 300 Balance -2440 / -2440 108.33 / 108.33 Lab / Micro Data Result Diagrams: 06/16/21 12:25 06/15/21 06:26 Labs: Laboratory Results - last 24 hr 06/15/21 14:14: Blood Type B POSITIVE, Antibody Screen NEGATIVE 06/16/21 12:25: WBC 14.4 H, RBC 4.05 L, Hgb 12.5 L, Hct 36.5 L, MCV 90.1, MCH 30.9, MCHC 34.2, RDW Std Deviation 46.0 H, RDW Coeff of Ash 13.9, Plt Count 217, MPV 9.9 Micro: Microbiology 06/14/21 23:56 Nasal Secretion SARS-CoV-2 Antigen (Rapid) - Final Radiography Diagnostic Testing: Radiology Impression Hip X-Ray 06/15/21 17:57 IMPRESSION: Status post right hip arthroplasty in anatomic position and alignment with postoperative change. Electronically Signed: Emilee Jones MD at 4:08 EST Tel , Service support , Physical Exam Narrative General - A&Ox3, NAD. VSS/AF Right lower extremity -incisional dressing C/D/I. SILT Sural, Saphenous, SPN, DPN, Tibial N. distributions. DP, PT 2+. BCR. DF, PF, EHL 12/03. No calf TTP. Assessment & Plan Assessment/Plan (1) Femoral neck fracture: QUALIFIERS: Encounter type: initial encounter Fracture type: closed Laterality: right Qualified Code(s): S72.001A - Fracture of unspecified part of neck of right femur, initial encounter for closed fracture PLAN: POD#1 s/p right hip hemiarthroplasty posterior approach - Pain control - Medicine following for medical management - PT/OT - DVT PPX -Lovenox 40 mg subcu daily -Patient minimally ambulatory. He expressed her frustration when she was doing better already. Ensured patient that he is within normal limits of po stoperative course. We discussed potentially staying the hospital 1 additional night, which I feel is reasonable. I suspect he will need placement. - Case management - D/C planning
[2021-06-16] MEDS: oxyCODONE 5 MG Tablet 10 MG PO ×2 (14:44→22:12)
[2021-06-16] MEDS: Acetaminophen 500 MG Tablet 1000 MG PO ×2 (14:45→22:13)
--- NOTE | 2021-06-16 18:09 | PN.HOSP_ITS ---
Subjective Subjective Patient was seen and examined today, I talked with him briefly about going to the rehab unit at [facility], initially he did not feel he wanted to do that and instead wanted to go home but after seeing physical therapy today, patient felt that his was not able to help him at home and he has agreed to go to the rehab unit for inpatient rehab services. Patient has no complaints of any chest pain or shortness of breath today. Objective Data Objective Data Vital Signs: Vital Signs Temp Pulse Resp BP Pulse Ox 98.3 F 77 16 143/73 H 97 06/16/21 15:09 06/16/21 15:09 06/16/21 15:09 06/16/21 15:09 06/16/21 15:09 Oxygen Flow Rate (L/min) 1.5 Oxygen Delivery Method Room Air Weight: 92.714 kg Body Mass Index (BMI) 26.9 Intake & Output: Intake and Output for Last 24 Hours 06/14/21 06/15/21 06/16/21 23:59 23:59 23:59 Intake Total 1210 / 1210 1408.33 / 1408.33 Output Total 3650 / 3650 600 / 600 Balance -2440 / -2440 808.33 / 808.33 Lab / Micro Data Result Diagrams: 06/16/21 12:25 06/15/21 06:26 Labs: Laboratory Results - last 24 hr 06/16/21 12:25: WBC 14.4 H, RBC 4.05 L, Hgb 12.5 L, Hct 36.5 L, MCV 90.1, MCH 30.9, MCHC 34.2, RDW Std Deviation 46.0 H, RDW Coeff of Ash 13.9, Plt Count 217, MPV 9.9 Micro: Microbiology 06/14/21 23:56 Nasal Secretion SARS-CoV-2 Antigen (Rapid) - Final Radiography Diagnostic Testing: Radiology Impression Hip X-Ray 06/15/21 17:57 IMPRESSION: Status post right hip arthroplasty in anatomic position and alignment with postoperative change. Electronically Signed: Emilee Jones MD at 4:08 EST Tel , Service support , Physical Exam Narrative Const alert, oriented x3, no apparent distress and healthy appearing General Appearance: cooperative, well kempt and well developed Orientation / Consciousness: awake, oriented to person, oriented to place and oriented to time HEENT normocephalic and moist oral mucous membranes Eyes PERRL, EOMs intact bilaterally and conjunctivae normal Neck nuchal rigidity, supple, no JVD, thyroid normal and no carotid bruits General: trachea midline Resp normal respiratory effort and clear to auscultation bilaterally Auscultation: Negative for rales, rhonchi or wheezes Cardio regular rate, regular rhythm, no murmurs, no rub and no gallops GI normal to inspection, nondistended, normoactive bowel sounds, soft to palpation, non-tender and non-distended Extremity no clubbing, cyanosis or edema Skin no rashes or lesions noted General Skin Exam: no breakdown Neuro oriented x3, CN's II-XII intact bilaterally, no focal motor deficits and no sensory deficits noted Sensorium / Orientation: awake and alert Speech: speech normal Psych thought process normal and affect normal Assessment & Plan Assessment/Plan (1) Femoral neck fracture: QUALIFIERS: Encounter type: initial encounter Fracture type: closed Laterality: right Qualified Code(s): S72.001A - Fracture of unspecified part of neck of right femur, initial encounter for closed fracture PLAN: 1. Right femoral neck fracture-postop day 1, PT and OT will see the patient, the plan is for the patient to go to the rehab unit at [facility] if he is stable tomorrow morning. #2 essential hypertension #3 BPH #4 obstructive sleep apnea-patient is noncompliant with his CPAP usage at home, according to his , he has not used CPAP in a year. Charges/Coding Visit Charges Inpatient E&M: 19142 Subs Hosp L2
[2021-06-16] MEDS: Senna/Docusate Sodium 1 Tablet 2 TABLET PO (22:13)
[2021-06-17 02:56] VITALS: BP 137/68; PULSE 91; RESP 18; TEMP 37.1; O2SAT 94
[2021-06-17] MEDS: oxyCODONE 5 MG Tablet 10 MG PO ×3 (04:10→17:05)
[2021-06-17] MEDS: Enoxaparin 40 MG/0.4 ML Syringe SC (06:28)
[2021-06-17] MEDS: Acetaminophen 500 MG Tablet 1000 MG PO ×2 (06:28→13:36)
[2021-06-17 07:35] VITALS: O2SAT 92
--- NOTE | 2021-06-17 08:12 | PCM.PN.ORT ---
Subjective Subjective Pt S&E. Pain much improved with PO oxycodone and tylenol. Feels he will be able to do more with therapy today. Denies F/C/N/V/SOB/CP. Objective Data Objective Data Vital Signs: Vital Signs Temp Pulse Resp BP Pulse Ox 98.7 F 91 18 137/68 H 92 06/17/21 02:56 06/17/21 02:56 06/17/21 02:56 06/17/21 02:56 06/17/21 07:35 Oxygen Flow Rate (L/min) 1.5 Oxygen Delivery Method Room Air Weight: 204 lb 6.4 oz Body Mass Index (BMI) 26.9 Intake & Output: Intake and Output for Last 24 Hours 06/15/21 06/16/21 06/17/21 23:59 23:59 23:59 Intake Total 1210 / 1210 2307.50 / 2507.50 400 / 400 Output Total 3650 / 3650 750 / 900 150 / 150 Balance -2440 / -2440 1557.50 / 1607.50 250 / 250 Lab / Micro Data Result Diagrams: 06/16/21 12:25 06/15/21 06:26 Labs: Laboratory Results - last 24 hr 06/16/21 12:25: WBC 14.4 H, RBC 4.05 L, Hgb 12.5 L, Hct 36.5 L, MCV 90.1, MCH 30.9, MCHC 34.2, RDW Std Deviation 46.0 H, RDW Coeff of Ash 13.9, Plt Count 217, MPV 9.9 Micro: Microbiology 06/14/21 23:56 Nasal Secretion SARS-CoV-2 Antigen (Rapid) - Final Physical Exam Narrative General - A&Ox3, NAD. VSS/AF Right lower extremity -incisional dressing C/D/I. SILT Sural, Saphenous, SPN, DPN, Tibial N. distributions. DP, PT 2+. BCR. DF, PF, EHL 5/5. No calf TTP. Assessment & Plan Assessment/Plan (1) Femoral neck fracture: QUALIFIERS: Encounter type: initial encounter Fracture type: closed Laterality: right Qualified Code(s): S72.001A - Fracture of unspecified part of neck of right femur, initial encounter for closed fracture PLAN: POD#2 s/p right hip hemiarthroplasty posterior approach - Pain control - Medicine following for medical management - PT/OT - DVT PPX -Lovenox 40 mg subcu daily - Agree with rehab placement. Pain much improved with PO analgesics. Stable for transfer from my standpoint. F/u with me in 2-3 weeks for staple removal and XRs. WBAT. Posterior hip precautions - no flexion > 90 deg, no crossing legs, and no Internal rotation. Maintain dressing x 7 days then ok to leave open to air. Ok to shower now with dressing on. Please contact me with any questions or concerns. - Case management - D/C planning
[2021-06-17 08:22] VITALS: BP 104/49; PULSE 80; RESP 16; TEMP 36.9; O2SAT 93
[2021-06-17] MEDS: Losartan Potassium 50 MG Tablet PO (08:29)
[2021-06-17] MEDS: Finasteride 5 MG Tablet PO (08:29)
[2021-06-17] MEDS: Doxazosin 4 MG Tablet PO (08:29)
[2021-06-17] MEDS: amLODIPine 10 MG Tablet PO (08:29)
[2021-06-17] MEDS: Cholecalciferol (VIT D3) 25 MCG TABLET (1,000 UNITS) 50 MCG PO (08:29)
[2021-06-17] MEDS: Famotidine 20 MG Tablet PO (08:29)
--- NOTE | 2021-06-17 11:22 | PCM.DC ---
Discharge Instructions Diet Discharge Diet: No restrictions Activity Weight Bearing Status: Weight bearing as tolerated (Posterior hip precautions - no flexion > 90 deg, no crossing legs, and no Internal rotation. Maintain dressing x 7 days then ok to leave open to air. Ok to shower now with dressing on.) Dressing / Incision Call your doctor if your incision/area has: Continuous Slow Oozing, Sudden Increased Bleeding, Increased Pain/ Swelling, Increased Redness and Foul Smelling Discharge Follow Up Care Test Results: Test results from this visit will be discussed in further detail at your follow-up appointment, if applicable. Discharge Plan Admission Admit Date/Time: 06/14/21 22:17 Primary Reason for Your Visit: Partially displaced transcervical right femoral neck fracture. Attending Provider: Artem Bal Primary Care Provider: José Luis Reza Consulting Providers: Bull Freeman Discharge Orders/Prescriptions Prescriptions: New sennosides-docusate sodium [Stool Softener-Stimulant Laxat] 8.6-50 mg Tablet 2 tab PO BID PRN PRN (Reason: Constipation) Qty: 0 RF: 0 acetaminophen 500 mg Tablet 1,000 mg PO Q8 Qty: 0 RF: 0 oxycodone 5 mg Tablet 10 mg PO Q6H PRN PRN (Reason: Pain Score 6-10) Qty: 0 RF: 0 enoxaparin 40 mg/0.4 mL Syringe 40 mg subcut DAILY@0600 Qty: 0.4 RF: 0 ergocalciferol (vitamin D2) [Vitamin D2] 1,250 mcg (50,000 unit) capsule 1,250 mcg PO QWEEK Qty: 8 RF: 0 Continued losartan 50 mg Tablet 50 mg PO DAILY RF: 0 famotidine 20 mg Tablet 20 mg PO BID RF: 0 doxazosin 4 mg Tablet 4 mg PO DAILY RF: 0 felodipine 10 mg Tablet Extended Release 24 Hr 10 mg PO DAILY RF: 0 finasteride 5 mg Tablet 5 mg PO DAILY RF: 0 Discontinued sildenafil 100 mg Tablet 100 mg PO DAILY PRN (Reason: Sexual Activity) RF: 0 cholecalciferol (vitamin D3) [Vitamin D3] 50 mcg (2,000 unit) Capsule 50 mcg PO DAILY RF: 0 Referrals / Follow Up: Bull Freeman DO [STAFF PHYSICIAN] - Within 2 Weeks José Luis Reza MD [Primary Care Provider] - Within 2 Weeks Disposition Disposition (needs filled in before D/C Order can be placed): Inpatient Rehab Unit/Facility
--- NOTE | 2021-06-17 11:37 | CASEMGMT ---
Social Work Physician stating pt is ready for discharge today. Phone call to Maru in Inpatient Rehab and they are able to accept pt today. SW met with pt as pt is sleeping soundly, and explained discharge plan. Pt is agreeable. Nursing updated that pt can be discharged to Rehab Unit. JOHNSON Lizarraga
--- NOTE | 2021-06-17 12:04 | DS.PCM_ITS ---
Providers Date of Admission: 06/14/21 Primary Care Physician: Dr. José Luis Reza MD Consultations 06/15/21 00:20 Consult: Orthopedics Routine Consulting Provider: Bull Freeman Reason for Consult: R hip fracture EMERGENT Consult: No MD Notified: Yes Date Notified: 06/14/21 Time Notified: 22:44 Method of Notification: Provider Initiated Reason For Visit: PARTIALLY DISLOCATED TRANSCERVICAL RIGHT FEMORAL Diagnosis Discharge Diagnosis (1) Femoral neck fracture: Status: Acute Code(s): S72.009A - Fracture of unspecified part of neck of unspecified femur, initial encounter for closed fracture Qualifiers: Encounter type: initial encounter Fracture type: closed Laterality: right Qualified Code(s): S72.001A - Fracture of unspecified part of neck of right femur, initial encounter for closed fracture Medications at Discharge Home Medications doxazosin 4 mg PO DAILY 06/14/21 famotidine 20 mg PO BID 06/14/21 felodipine 10 mg PO DAILY 06/14/21 finasteride 5 mg PO DAILY 06/14/21 losartan 50 mg PO DAILY 06/14/21 acetaminophen 1,000 mg PO Q8 #0 tab 06/17/21 enoxaparin 40 mg SUBCUT DAILY@0600 #0.4 ml 06/17/21 ergocalciferol (vitamin D2) [Vitamin D2] 1,250 mcg PO QWEEK #8 cap 06/17/21 oxycodone 10 mg PO Q6H PRN PRN #0 tab 06/17/21 sennosides-docusate sodium [Stool Softener-Stimulant Laxat] 2 tab PO BID PRN PRN #0 tab 06/17/21 Hospital Course Operations - (Right displaced femoral neck fracture) Procedures None Summary of Care Provided Minutes Spent on Discharge: 32 Hospital Course: 75 year old male fell and developed a right hip fracture. On 06/15 he underwent a right hip arthroplasty. His coarse in the hospital was uncomplicated. Pain has been controlled with oxycode. Patient will be discharged to acute rehab. Physical Exam Const alert General Appearance: cooperative Resp normal respiratory effort, no retractions, no use of accessory muscles and clear to auscultation bilaterally Cardio regular rate, regular rhythm, S1 normal heart sound and S2 normal heart sound GI normal to inspection, nondistended, normoactive bowel sounds, soft to palpation, non-tender and non-distended Extremity normal to inspection Extremity Narrative: right hip incision dressing intact--did not remove. Neuro Sensorium / Orientation: awake and alert Weight / BMI Weight Weight: 92.714 kg Body Mass Index (BMI) 26.9 ABG / Lab / Microbiology Data Result Diagrams: 06/16/21 12:25 06/15/21 06:26 Laboratory: Laboratory Results - last 24 hr 06/16/21 12:25: WBC 14.4 H, RBC 4.05 L, Hgb 12.5 L, Hct 36.5 L, MCV 90.1, MCH 30.9, MCHC 34.2, RDW Std Deviation 46.0 H, RDW Coeff of Ash 13.9, Plt Count 217, MPV 9.9 Microbiology: Microbiology 06/14/21 23:56 Nasal Secretion SARS-CoV-2 Antigen (Rapid) - Final D/C Instructions Discharge Diet: No restrictions Weight Bearing Status: Weight bearing as tolerated (Posterior hip precautions - no flexion > 90 deg, no crossing legs, and no Internal rotation. Maintain dressing x 7 days then ok to leave open to air. Ok to shower now with dressing on.) Call your doctor if your incision/area has: Continuous Slow Oozing, Sudden Incr eased Bleeding, Increased Pain/ Swelling, Increased Redness and Foul Smelling Discharge Meaningful Use Info Meaningful Use Diagnoses (Choose all that apply): None applicable Discharge Plan Admission Admit Date/Time: 06/14/21 22:17 Primary Reason for Your Visit: Partially displaced transcervical right femoral neck fracture. Attending Provider: Artem Bal Primary Care Provider: José Luis Reza Consulting Providers: Bull Freeman Discharge Orders/Prescriptions Prescriptions: New sennosides-docusate sodium [Stool Softener-Stimulant Laxat] 8.6-50 mg Tablet 2 tab PO BID PRN PRN (Reason: Constipation) Qty: 0 RF: 0 acetaminophen 500 mg Tablet 1,000 mg PO Q8 Qty: 0 RF: 0 oxycodone 5 mg Tablet 10 mg PO Q6H PRN PRN (Reason: Pain Score 6-10) Qty: 0 RF: 0 enoxaparin 40 mg/0.4 mL Syringe 40 mg subcut DAILY@0600 Qty: 0.4 RF: 0 ergocalciferol (vitamin D2) [Vitamin D2] 1,250 mcg (50,000 unit) capsule 1,250 mcg PO QWEEK Qty: 8 RF: 0 Continued losartan 50 mg Tablet 50 mg PO DAILY RF: 0 famotidine 20 mg Tablet 20 mg PO BID RF: 0 doxazosin 4 mg Tablet 4 mg PO DAILY RF: 0 felodipine 10 mg Tablet Extended Release 24 Hr 10 mg PO DAILY RF: 0 finasteride 5 mg Tablet 5 mg PO DAILY RF: 0 Discontinued sildenafil 100 mg Tablet 100 mg PO DAILY PRN (Reason: Sexual Activity) RF: 0 cholecalciferol (vitamin D3) [Vitamin D3] 50 mcg (2,000 unit) Capsule 50 mcg PO DAILY RF: 0 Referrals / Follow Up: Bull Freeman DO [STAFF PHYSICIAN] - Within 2 Weeks José Luis Reza MD [Primary Care Provider] - Within 2 Weeks Disposition Disposition (needs filled in before D/C Order can be placed): Inpatient Rehab Unit/Facility Charges/Coding Visit Charges Inpatient E&M: 47629 Disch Hosp
[2021-06-17 13:29] VITALS: BP 130/55; PULSE 100; RESP 16; TEMP 37.5; O2SAT 95
== END 2021-06-17 17:15 | DRG 522 ==
LOC: ED 22:18 → MS2 23:24
PROVIDERS: Internal Medicine; Student in an Organized Health Care Education/Training Program; Admitting Provider Hospitalist; Emergency Provider Student in an Organized Health Care Education/Training Program; PCP Internal Medicine
PROC: (CPT 27125; principal; 2021-06-15 15:10)
DX: S72.031A Displaced midcervical fracture of right femur, initial encounter for closed fracture (principal); M62.838 Other muscle spasm; Z20.822 Contact with and (suspected) exposure to COVID-19; I10 Essential (primary) hypertension; N40.0 Benign prostatic hyperplasia without lower urinary tract symptoms; K21.9 Gastro-esophageal reflux disease without esophagitis; G47.33 Obstructive sleep apnea (adult) (pediatric); H91.90 Unspecified hearing loss, unspecified ear; I69.341 Monoplegia of lower limb following cerebral infarction affecting right dominant side; W01.0XXA Fall on same level from slipping, tripping and stumbling without subsequent striking against object, initial encounter; Y93.9 Activity, unspecified; Y92.9 Unspecified place or not applicable; Y99.9 Unspecified external cause status; Z91.19 Patient's noncompliance with other medical treatment and regimen; Z87.891 Personal history of nicotine dependence
CPT/HCPCS: 36415; 51702; 72170; 73502; 73552; 80048; 81001; 82306; 85025; 85027; 86850; 86900; 86901; 87426; 88305; 88311; 93005; 97110; 97162; 97166; 99285; C1776; J7120; A4216; J2405

== ENCOUNTER 2021-06-17 18:34 | Inpatient (IN) | payer MEDICARE, SELFPAY ==
[2021-06-17 18:55] VITALS: BP 136/65; PULSE 94; RESP 18; TEMP 37.4; O2SAT 95; BMI 25.6
[2021-06-17 19:30] VITALS: BP 141/68; PULSE 90; RESP 18; TEMP 37.2; O2SAT 95
[2021-06-17 21:00] VITALS: PULSE 90; RESP 18; O2SAT 95
[2021-06-17] MEDS: Acetaminophen 500 MG Tablet 1000 MG PO (22:30)
[2021-06-17] MEDS: Famotidine 20 MG Tablet PO (22:31)
[2021-06-17] MEDS: oxyCODONE 5 MG Tablet 10 MG PO (22:31)
[2021-06-17] MEDS: Senna/Docusate Sodium 1 Tablet 2 TABLET PO (22:31)
[2021-06-18] MEDS: oxyCODONE 5 MG Tablet 10 MG PO ×3 (05:15→18:30)
[2021-06-18] MEDS: Acetaminophen 500 MG Tablet 1000 MG PO ×3 (05:15→22:51)
[2021-06-18] MEDS: Enoxaparin 40 MG/0.4 ML Syringe SC (05:16)
[2021-06-18 08:14] VITALS: BP 140/62; PULSE 72; RESP 18; TEMP 37.2; O2SAT 95
[2021-06-18] MEDS: Finasteride 5 MG Tablet PO (08:23)
[2021-06-18] MEDS: Losartan Potassium 50 MG Tablet PO (08:23)
[2021-06-18] MEDS: Doxazosin 4 MG Tablet PO (08:23)
[2021-06-18] MEDS: Senna/Docusate Sodium 1 Tablet 2 TABLET PO ×2 (08:23→22:50)
[2021-06-18] MEDS: Famotidine 20 MG Tablet PO ×2 (08:23→22:50)
--- NOTE | 2021-06-18 12:17 | PCM.HP.STD ---
HPI - General General Date of Admission: 06/17/21 HPI Narrative DORIS DAVIS, is a 75 YO M with a PMH of remote CVA with residual RLE weakness, GIFTY, BPH, erectile dysfunction, vitamin D deficiency, hypertension, osteoarthritis and hearing deficit (has a cochlear implant) who presented to the ED at [facility] on 06/14/21 c/o pain in the R hip after a fall. He was unable to bear weight on his right leg. X-ray of the right pelvis showed a transcervical femoral neck fracture on the right. He was admitted to the hospitalist service and Dr. Freeman was consulted for repair. He was taken to surgery on 06/15/2021 for a right hip hemiarthroplasty. Physical therapy thought he would benefit from rehab because he required more assistance than his was able to provide. He was transferred to the inpatient acute rehab unit at [facility] on 06/17/2021 for 3 hours of therapy daily to restore function/independence at or near his prior level of function. All lab done on the acute side was reviewed. The vitamin D level was within normal limits on a supplement. Hemoglobin dropped to 12.5 postoperatively from 13. Temp last evening was 99.4 and he is afebrile today. Vital signs are stable and he is maintaining appropriate oxygen saturation on room air. EKG at admission showed normal sinus rhythm with left axis deviation and possible inferior infarct, age undetermined. [facility] Medical History (Updated 06/18/21 @ 17:[address] Tamera Tillman, ) BPH (benign prostatic hyperplasia) Cochlear hearing loss Erectile dysfunction History of CVA (cerebrovascular accident) Hypertension Obstructive sleep apnea Pancreatitis Sleep apnea Vitamin D deficiency Home Medications doxazosin 4 mg PO DAILY 06/14/21 [History Last Taken Unknown] famotidine 20 mg PO BID 06/14/21 [History Last Taken Unknown] felodipine 10 mg PO DAILY 06/14/21 [History Last Taken Unknown] finasteride 5 mg PO DAILY 06/14/21 [History Last Taken Unknown] losartan 50 mg PO DAILY 06/14/21 [History Last Taken Unknown] acetaminophen 1,000 mg PO Q8 06/17/21 [History Last Taken Unknown] enoxaparin 40 mg SUBCUT DAILY@0600 06/17/21 [History Last Taken Unknown] ergocalciferol (vitamin D2) [Vitamin D2] 1,250 mcg PO QWEEK 06/17/21 [History Last Taken Unknown] oxycodone 10 mg PO Q6H PRN PRN #0 tab 06/17/21 [Rx Last Taken Unknown] Allergy/AdvReac Type Severity Reaction Status Date / Time No Known Allergies Allergy Verified 06/14/21 19:30 Family History Other Heart disease Surgical History (Updated 06/18/21 @ 17:[address] Tamera Tillman DO) History of cochlear implant History of herniorrhaphy Hx of arthroscopic knee surgery Social History Smoking Status: Former smoker ROS Constitutional Constitutional: Denies anorexia, change in weight, chills, fatigue, fever(s), night sweats or weakness Eyes Eyes: Denies blurry vision, change in vision, eye pain or loss of vision ENT HEENT: Denies abnormal hearing, dysphagia, headache(s), hearing loss, nasal congestion or sore throat Cardiovascular Cardiovascular: Denies chest pain, dyspnea on exertion, edema, lightheadedness, orthopnea, palpitations, paroxysmal nocturnal dyspnea or syncope Respiratory/Chest Respiratory/Chest: Denies cough, dyspnea, shortness of breath at rest, shortness of breath with exertion or wheezing Gastrointestinal Gastrointestinal: Reports other Details: he is burping a lot today but, he attributes this to drinking Coke ; Denies abdominal pain, constipation, diarrhea, dyspepsia, hematemesis, hematochezia, nausea or vomiting Genitourinary Genitourinary: Reports other Details: He gets bladder irritability and frequency with too much caffeine intake ; Denies dysuria, hematuria, nocturia, urinary frequency, urinary hesitancy, urinary incontinence or urinary urgency Musculoskeletal Musculoskeletal: Reports difficulty walking, joint pain, limited range of motion, muscle weakness, stiffness and other Details: He is S/P Right hip hemiarthroplasty on 06/15/2021. ; Denies back pain, joint swelling or neck pain Neurologic Neurologic: Denies confusion, disequilibrium, dizziness, focal weakness, headache(s), paresthesias, seizures or tremor(s) Psychiatric Psychiatric: Denies anxiety, depression, homicidal ideation or suicidal ideation Endocrine Endocrinology: Denies change in body appearance, polydipsia or polyuria Hematologic/Lymphatic Hematologic/Lymphatic: Denies easy bleeding, easy bruising or lymphadenopathy Allergic/Immunologic Allergic/Immunologic: Denies rhinitis, eczemia or asthma Vital Signs Vital Signs Vital Signs: 06/17/21 18:55 06/17/21 19:30 06/17/21 21:00 Temperature 99.4 F H 99 F Temperature Source Oral Oral Pulse Rate 94 90 90 Respiratory Rate 18 18 18 Respiratory Effort Normal Non-Labored Respiratory Depth Normal Respiratory Pattern Normal Blood Pressure 136/65 H 141/68 H Blood Pressure Mean 88 92 Blood Pressure Source Monitor Monitor Blood Pressure Position Semi-Fowlers Semi-Fowlers Blood Pressure Location Right Arm Right Arm Pulse Ox 95 95 95 Oxygen Delivery Method Room Air Room Air Room Air 06/18/21 08:14 Temperature 98.9 F Temperature Source Oral Pulse Rate 72 Respiratory Rate 18 Respiratory Effort Respiratory Depth Respiratory Pattern Blood Pressure 140/62 H Blood Pressure Mean 88 Blood Pressure Source Monitor Blood Pressure Position Semi-Fowlers Blood Pressure Location Left Arm Pulse Ox 95 Oxygen Delivery Method Room Air Weight Weight: 194 lb 0.108 oz Body Mass Index (BMI) 25.6 Physical Exam Const alert, oriented x3, no apparent distress, average body habitus and healthy appearing Constitutional Narrative: Making good eye contact, appropriate General Appearance: cooperative and comfortable HEENT normocephalic HEENT Narrative: MM are very dry. Cochlear implant R side. Eyes PERRL, EOMs intact bilaterally, conjunctivae normal and no scleral icterus Neck no lymphadenopathy, supple, no JVD and no carotid bruits General: trachea midline Lymph Lymphatic: no lymphadenopathy noted Resp normal respiratory effort, normal air movement, no use of accessory muscles and clear to auscultation bilaterally Resp Narrative: Not tachypneic and no conversational dyspnea. Effort and Inspection: able to speak in complete sentences Cardio regular rhythm, S1 normal heart sound, S2 normal heart sound, no murmurs, no rub and no gallops Rate: tachycardic GI non-tender GI Narrative: No guarding with palpation. Mildly distended and tympanic. No BM in 5 days. Normal BS's. Refused a laxative today in the morning. no CVA tenderness Extremity normal capillary refill, no clubbing, cyanosis or edema, no calf tenderness and no pedal edema Extremity Narrative: Negative Jose Rmaon's and Sravan's signs Skin Skin Narrative: No rashes, no skin breakdown. General Skin Exam: no breakdown Rashes: no rashes Wound Narrative: The incision is covered by a dressing we are not to remove yet. Neuro oriented x3, CN's II-XII intact bilaterally, no focal motor deficits and no sensory deficits noted Motor Exam: strength 5/5 throughout Psych mental status grossly normal, thought process normal and affect normal Psych Narrative: Appropriate, making good eye contact. Able to stay on topic and focus. No flight of ideas. Does not appear anxious or depressed. Conversant and relating well to staff. He is quite stubborn Assessment & Plan Assessment/Plan (1) Physical debility: (2) Fall: (3) Femoral neck fracture: QUALIFIERS: Encounter type: initial encounter Fracture type: closed Laterality: right Qualified Code(s): S72.001A - Fracture of unspecified part of neck of right femur, initial encounter for closed fracture (4) History of right hip hemiarthroplasty: (5) Acute blood loss anemia: (6) Dehydration: (7) Tachycardia: (8) Obstructive sleep apnea: (9) Hearing deficit: (10) Hypertension: (11) Osteoarthritis: (12) History of CVA (cerebrovascular accident): (13) BPH (benign prostatic hyperplasia): PLAN: PLAN PT for gait stability OT for ADL's ST for evaluation Analgesics as needed Bowel protocol Fall precautions Assess for Anxiety/Depression GI prophylaxis not necessary. He has no history of peptic ulcer disease. He is on Lovenox and not aspirin for DVT prophylaxis. DVT prophylaxis with enoxaparin 40 mg subcu daily Follow up with Dr. Freeman, PCP following DC from [facility] AM lab including BMP, CBC He is determined to go home Tuesday. He has 11 steps up to the shower and the bedroom. He has 4 steps to get into the house and there is no handrail. He has no grab bars and needs an elevated toilet seat, WW and a shower chair. His dtr is in town but will be leaving after . We will have the and dtr come in for family training in the AM. Even if it is possible to get the equipment ordered and the house ready I do not know whether he will be safe at home yet. Will discuss with therapy tomorrow. I discussed with his dtr Jana this evening. Charges/Coding Visit Charges Inpatient E&M: 40020 Init Hosp L2
--- NOTE | 2021-06-18 12:27 | PCM.RU.PYE ---
Admission Information Primary Diagnosis:: Debility secondary to recent fall resulting in a right femoral neck fracture. ORIF was done on 06/15/[address] Bull Chauhan hip hemiarthroplasty. Status Changes from Prescreening?: No changes Identified Actual Problem List:: Falls, Skin Intergrity, Pain, ALteration in Cmfrt, Mobility Impaired, Self Care Deficit, BP, Hypertension and Alteration-Leisure Activ. Potential Problem List:: DVT, Bleeding, Infection, UTI, Aspiration, Falls, Skin Integrity and Depression Risk of Complications DVT: LMWH and VIDHYA Hose Bleeding: Monitor Lab Values, Nursing to Teach Precautions for anti-coagulation therapy., Wound, if applicable, to be assessed every shift. and Stroke patients assessed for lethargy or change in status. Infection: Clinical Staff to Monitor for S/S of infection: and S/S of infection include fever, redness, warmth, etc. Urinary Tract Infection: Monitor for frequency, burning, discomfort, or incontinence. and Nursing will obtain urine sample for urinalysis and C&S when ordered. Aspiration: Clinical staff will monitor for coughing, drooling, congestion., Speech will evaluate swallowing and dsyphasia. and Nursing will monitor patient swallowing during meals. Falls: Patient will be evaluated for Fall Precautions and Patient will be placed on Fall Precautions as indicated per protocol. Skin Breakdown: Nursing will assess skin daily using assessment tool. and Nursing will place on Skin Breakdown Precautions as indicated. Pain: Clinical staff will assess patient's pain level per protocol., Medications will be given, if needed, and the pain level reassessed. and Other methods: Massage, distraction, decrease stimulus, etc. used PRN. Plan of Care Patient requires physician specializing in physical medicine and rehab oversight to provide close medical supervision of rehab issues including: Pain Management, Sleep Problems, Bowel and Bladder, Medical and co-morbidity Management, DVT prophylaxis, Rehabilitation Leadership and Coordination of treatment team Patient needs Physical Therapy: For a minimum of 1 hour and At least 5 out of 7 days Patient needs Physical Therapy to improve:: Mobility, Strengthening, Transfers, Stretching, ROM, Endurance, Stairs, Gait and Balance Patient needs Occupational Therapy: For a minimum of 1 hour and At least 5 out of 7 days Patient needs Occupational Therapy to improve ADL's incl.: Eating, Grooming, Bathing, Dressing, Toileting, Toilet transfers, Community Reintegration, Higher functioning activities, Household tasks, Adaptive Equipment, Splinting and Other activities as determined Patient requires 24/7 Rehabilitation Nursing for: Pain Issues, Identifying and preventing risk factors, Monitoring and reporting current medical conditions, Assisting with ambulation, transfer, and all ADL's, Teaching patients about disease process and medications, Family teaching, Providing safe environment, Bowel and Bladder Issues, Skin integrity and Medication Management Patient needs Supervisor Garage/ Case Management for: Discharge Planning, Arranging Home Equipment or Services and Family Interventions Patient needs Dietary and Nutrition Services for: Adequate Nutrition, Nutritional Supplements and Nutritional Education Goals Patient will remain: free from falls and or injury at time of discharge. Patient will perform bed mobility at: MOD I level of assist. Patient will complete transfers from bed to chair at: MOD I level of assist. Patient will ambulate: - (165' with a WW) Patient will complete upper body dressing at: MOD I level of assist. Patient will complete lower body dressing at: MOD I level of assist. Patient will complete toileting at: MOD I level of assist. Patient will perform bathing at: MOD I level of assist. Patient will complete grooming at: MOD I level of assist. Patient will complete home management skills at: MOD I level of assist. Patient will achieve: 12 stairs (with 1 HR at SBA) and - (1 curb step) Patient will have pain level of: of 3 or less Patient's skin will: remain intact Patient will receive: adequate nutrition. Discharge Planning Pt Prognosis for Sig. Practical Improv. w/in Reasonable Time: Good Estimated Length of stay (days): 10 Anticipated D/C Destination: Home with Outpt Therapy Was Preadmission Assessment Accurate?: Yes
[2021-06-18 12:48] VITALS: O2SAT 95
[2021-06-18 22:30] VITALS: BP 147/76; PULSE 89; RESP 16; TEMP 37.1; O2SAT 94
[2021-06-18] MEDS: oxyCODONE 5 MG Tablet PO (22:51)
[2021-06-18] MEDS: Magnesium Hydroxide 30 ML UDC PO (22:52)
[2021-06-19] MEDS: oxyCODONE 5 MG Tablet PO ×5 (04:38→22:19)
[2021-06-19] MEDS: Acetaminophen 500 MG Tablet 1000 MG PO ×2 (05:45→13:53)
[2021-06-19] MEDS: Enoxaparin 40 MG/0.4 ML Syringe SC (05:46)
[2021-06-19 05:48] LABS: Hematocrit 29.2 % (40-54); Hemoglobin 10.1 g/dL (13.0-16.5); Mean Corp Hgb Conc 34.6 g/dL (32-36); Mean Corpuscular Hgb 31.4 pg (27.0-32.0); Mean Corpuscular Volume 90.7 fL (80-94); Mean Platelet Vol. 9.7 fl (6.2-12.0); Platelet Count 246 K/mm3 (150-450); RBC Distribution Width CV 13.8 % (11.6-14.6); RBC Distribution Width SD 45.7 fl (35.1-43.9); Red Blood Count 3.22 M/mm3 (4.6-6.2); White Blood Count 9.5 K/mm3 (4.4-11.0)
[2021-06-19 06:17] LABS: Anion Gap 4 (5-15); BUN 29 mg/dL (7-18); BUN/Creat Ratio 24.6 RATIO (10-20); Calcium,Total 8.7 mg/dL (8.5-10.1); Chloride 102 mmol/L (98-107); Creatinine, Serum 1.18 mg/dL (0.70-1.30); EST Glomerular Filtration Rate 64 mL/min (>60); Est Glom Filt Rate - Afr Amer 77 mL/min (>60); Estimated Creatinine Clearance 62.07 ml/min; Glucose 101 mg/dL (74-106); Potassium 4.2 mmol/L (3.5-5.1); Sodium Level 134 mmol/L (136-145)
[2021-06-19 06:45] VITALS: O2SAT 93
[2021-06-19 07:30] VITALS: BP 144/70; PULSE 84; RESP 16; TEMP 37; O2SAT 94
[2021-06-19] MEDS: Doxazosin 4 MG Tablet PO (07:50)
[2021-06-19] MEDS: Finasteride 5 MG Tablet PO (07:50)
[2021-06-19] MEDS: amLODIPine 10 MG Tablet PO (07:50)
[2021-06-19] MEDS: Losartan Potassium 50 MG Tablet PO (07:50)
[2021-06-19] MEDS: Famotidine 20 MG Tablet PO ×2 (07:50→22:20)
--- NOTE | 2021-06-19 13:28 | CASEMGMT ---
Social Work Met with patient, and dtr for initial assessment. Pt gave permission to complete assessment with family present. Pt confirmed full code. Explained Medicare approved LOS 12 days with EDC 06/29. Pt expressed he does not want to remain in [place] and is ready to go home. Inquired about current abilities and how that will work at home. Pt stated I think I can survive, get by, and will make it work - I just want to go home. Offered the team wants pt to be thriving at home, doing well, and able to be more independent. Pt stated he feels shame asking family for help. Validated feelings and encouraged to remain longer, doesn't need to be all 12 days, but to allow more time to work with therapy so family does not have to help as much or at all at home. and dtr expressed concerns with pt returning home already. They would like to get handrails and grab bars in the home, get a 1st floor set up. Provided resources for handrails and grab bars. Continued to encourage and educate pt on benefits to remain in [facility]. Pt reluctantly agreed to hear the progress and recommendations from Team meeting Tuesday and the goal is to DC prior to . SW thanked pt for agreeing to stay and listening to recommendations. Pt remained very pleasant throughout conversation and appreciated this worker. Family thanked this worker as well. SW to continue to follow. Nora Love, RN GYNECOLOGY [employer] SALES CONSULTANT
--- NOTE | 2021-06-19 15:11 | PN_ITS ---
Progress Note Afebrile BUT he is getting a gram of Tylenol for pain control every 8 hours. VSS-systolic blood pressure is mildly increased however the diastolic is within normal limits. Maintaining appropriate oxygen saturation on RA Oral intake is good Discussed with nursing - He has a rash on his back that is pruritic and also has redness in the R groin and flank. Reviewed the PT/OT notes Medication list reviewed. States the pain is well controlled. Denies cough, SOB, CP, dysuria. No lightheadedness. No calf pain. Family came in for training today and after PT/OT we sat down and discussed potential DC date. He is not ready to go yet and the house is not ready for him to come home. No HR and no grab bars. They do not have throw rugs. He is agreeable to staying now and the therapists feel that he will likely be able to DC on Tuesday or TUE, IF the grab bars and the handrail have been installed. He will be staying on the first floor. He was able to get in and out of the car today with some difficulty but with the AD to lift his leg he was able to do it. Emiliana and his prefer not to have to do Lovenox injections at home so I have sent a cortext to Dr. Freeman asking him if ASA 81 mg BID for 1 month from surgery will be OK with him for DVT prophylaxis. Physical Exam Const alert, oriented x3 and no apparent distress Constitutional Narrative: He has better color in his face today. Resp clear to auscultation bilaterally Cardio regular rate, regular rhythm and no gallops GI normal to inspection, nondistended, normoactive bowel sounds, soft to palpation and non-tender GI Narrative: No BM yet. He had MOM yesterday. Back/Spine Back/Spine Narrative: Red papular rash on the back and no where else. It is pruritic. General Back: Negative for CVA tenderness Extremity no calf tenderness Extremity Narrative: Small amount of ankle edema on the R. The R upper anterior thigh and the R groin have faint erythema that is warm to touch. The warmth may be due to inflammation however he just took the ice hailey off and I would not expect it to be warm. there is a small amount of serous drainage from the proxi mal end of the incision. There is no redness immediately around the incision. There is a lot of dependent ecchymosis in the R posterolateral thigh. Skin General Skin Exam: no breakdown Rashes: rashes noted on the back - suspect due to the sheets/detergent maculopapular random and scattered red Assessment & Plan Assessment/Plan (1) Rash: (2) Physical debility: (3) Acute blood loss anemia: PLAN: 1. I am not sure what the redness and warmth are due to on the R anterior thigh. He is AF and the redness is not immediately around the incision. there is serosanguineous drainage at the proximal end of the incision but no purulent drainage. Will start Keflex empirically and re-examine the wound in the AM. I am going to hold the Tylenol for 24 hours to see if he will have a fever. 2. I suspect the rash on the back is due to a reaction to the detergent on the sheets. We see this fairly frequently. Will have him wear a T-shirt or a PJ top at night to protect his back from contact with the sheets. 3. Continue therapy. Family is going to have the handrail and the grab bars installed over the weekend and purchase a shower chair. Will get a WW and a 3 in 1 toilet seat prior from medical supply. D/W the . Visit Charges Inpatient E&M: 49787 Subs Hosp L2
[2021-06-19 22:00] VITALS: BP 140/63; PULSE 85; RESP 18; TEMP 36.8; O2SAT 96
[2021-06-19] MEDS: Cephalexin 500 MG Capsule PO (22:20)
[2021-06-19] MEDS: Senna/Docusate Sodium 1 Tablet 2 TABLET PO (22:21)
[2021-06-20] MEDS: oxyCODONE 5 MG Tablet PO ×4 (04:53→21:00)
[2021-06-20] MEDS: Cephalexin 500 MG Capsule PO ×3 (04:53→21:09)
[2021-06-20] MEDS: Enoxaparin 40 MG/0.4 ML Syringe SC (04:53)
[2021-06-20] MEDS: Bisacodyl 10 MG Suppository RC (04:54)
[2021-06-20] MEDS: Menthol/Lanolin/Calamine/Znox 113 GM Tube 1 APPLIC TOPICAL ×2 (06:59→21:09)
[2021-06-20 08:13] VITALS: O2SAT 96
[2021-06-20 08:32] VITALS: BP 151/69; PULSE 78; RESP 18; TEMP 37.4; O2SAT 94
[2021-06-20] MEDS: Losartan Potassium 50 MG Tablet PO (09:47)
[2021-06-20] MEDS: Famotidine 20 MG Tablet PO ×2 (09:47→21:10)
[2021-06-20] MEDS: Doxazosin 4 MG Tablet PO (09:47)
[2021-06-20] MEDS: Senna/Docusate Sodium 1 Tablet 2 TABLET PO ×2 (09:47→21:18)
[2021-06-20] MEDS: amLODIPine 10 MG Tablet PO (09:48)
[2021-06-20] MEDS: Finasteride 5 MG Tablet PO (09:48)
[2021-06-20 19:24] VITALS: BP 145/74; PULSE 86; RESP 16; TEMP 37.1; O2SAT 95
[2021-06-20] MEDS: Acetaminophen 500 MG Tablet 1000 MG PO (21:14)
[2021-06-20 22:50] VITALS: RESP 16
[2021-06-21] MEDS: oxyCODONE 5 MG Tablet PO ×4 (01:34→20:25)
[2021-06-21] MEDS: Acetaminophen 500 MG Tablet 1000 MG PO ×3 (05:11→20:44)
[2021-06-21] MEDS: Enoxaparin 40 MG/0.4 ML Syringe SC (05:11)
[2021-06-21] MEDS: Cephalexin 500 MG Capsule PO ×3 (05:11→20:44)
[2021-06-21] MEDS: Menthol/Lanolin/Calamine/Znox 113 GM Tube 1 APPLIC TOPICAL ×2 (05:15→20:43)
[2021-06-21 08:10] VITALS: BP 125/61; PULSE 79; RESP 16; TEMP 36.7; O2SAT 97
[2021-06-21] MEDS: Doxazosin 4 MG Tablet PO (09:44)
[2021-06-21] MEDS: Losartan Potassium 50 MG Tablet PO (09:45)
[2021-06-21] MEDS: Famotidine 20 MG Tablet PO ×2 (09:45→20:44)
[2021-06-21] MEDS: Finasteride 5 MG Tablet PO (09:45)
[2021-06-21] MEDS: amLODIPine 10 MG Tablet PO (09:45)
[2021-06-21] MEDS: Ergocalciferol 1.25 MG (50, 000 UNIT) Capsule PO (09:45)
[2021-06-21] MEDS: Senna/Docusate Sodium 1 Tablet 2 TABLET PO ×2 (09:45→20:44)
[2021-06-21 21:21] VITALS: BP 153/67; PULSE 76; RESP 18; TEMP 36.9; O2SAT 95
[2021-06-21 22:00] VITALS: RESP 16
[2021-06-22] MEDS: Menthol/Lanolin/Calamine/Znox 113 GM Tube 1 APPLIC TOPICAL ×2 (05:57→20:14)
[2021-06-22] MEDS: Enoxaparin 40 MG/0.4 ML Syringe SC (05:57)
[2021-06-22] MEDS: Cephalexin 500 MG Capsule PO ×3 (05:57→20:29)
[2021-06-22] MEDS: Acetaminophen 500 MG Tablet 1000 MG PO ×3 (05:57→20:28)
[2021-06-22 07:41] VITALS: BP 152/74; PULSE 88; RESP 16; TEMP 37.2; O2SAT 94
[2021-06-22] MEDS: Losartan Potassium 50 MG Tablet PO (09:07)
[2021-06-22] MEDS: Doxazosin 4 MG Tablet PO (09:08)
[2021-06-22] MEDS: Finasteride 5 MG Tablet PO (09:08)
[2021-06-22] MEDS: Famotidine 20 MG Tablet PO ×2 (09:08→20:29)
[2021-06-22] MEDS: amLODIPine 10 MG Tablet PO (09:08)
[2021-06-22] MEDS: Senna/Docusate Sodium 1 Tablet 2 TABLET PO ×2 (09:11→20:28)
--- NOTE | 2021-06-22 10:28 | PN_ITS ---
Subjective Subjective Afebrile VSS-systolic blood pressure is frequently mildly above goal however the diastolic has been within normal limits. Maintaining appropriate oxygen saturation on RA Oral intake is good Discussed with nursing - no problems that need addressed Reviewed the PT/OT notes - In Tuesday's note he needed a lot of cuing for proper use of the AD, step length, positioning. Today he was minimal assistance with lower body dressing, tub/shower transfer and bathing. MOD I or SBA for all other daily activities. Medication list reviewed. He denies chest pain, shortness of breath, palpitations, lightheadedness, cheko sea/vomiting/abdominal pain, dysuria. He slept well last night. His pain is adequately controlled. Objective Data Objective Data Vital Signs: Vital Signs Temp Pulse Resp BP Pulse Ox 98.9 F 88 16 152/74 H 94 06/22/21 07:41 06/22/21 07:41 06/22/21 07:41 06/22/21 07:41 06/22/21 07:41 Oxygen Delivery Method Room Air Weight: 194 lb 0.108 oz Body Mass Index (BMI) 25.6 Intake & Output: Intake and Output for Last 24 Hours 06/20/21 06/21/21 06/22/21 23:59 23:59 23:59 Intake Total 1550 / 1550 1150 / 1150 360 / 360 Output Total 850 / 850 1150 / 1150 Balance 700 / 700 0 / 0 360 / 360 Lab / Micro Data Result Diagrams: 06/19/21 05:35 06/19/21 05:35 Physical Exam Const alert, oriented x3 and no apparent distress Constitutional Narrative: Better able to follow commands today and there is not so much need for cuing on how to manage the AD. General Appearance: cooperative HEENT HEENT Narrative: Still maintaining that he will do fine at home and plans on going home tomorrow no matter what. Eyes PERRL, conjunctivae normal and no scleral icterus Eyes Narrative: Coclear implant in place but still has difficulty hearing and he talks over me when I am trying to talk with him. Resp clear to auscultation bilaterally Cardio regular rate and regular rhythm GI normal to inspection, nondistended, normoactive bowel sounds, soft to palpation and non-tender Extremity no calf tenderness Extremity Narrative: Minimal pitting of the R ankle. There is no longer any erythema of the R groin/anterior thigh but there is mild increased warmth. The ecchymosis is resolving but there is still pitting edema. Psych mental status grossly normal and thought process normal Attitude: other argumentative and at times not willing to listen to reason. He has been cooperative with therapy. Assessment & Plan Assessment/Plan (1) History of right hip hemiarthroplasty: (2) Acute blood loss anemia: (3) Physical debility: (4) Hyponatremia: PLAN: Plan DC tomorrow. All grab bars and handrails are in place and DME will be delivered to the room prior to DC. Charges/Coding Visit Charges Inpatient E&M: 57372 Subs Hosp L2
--- NOTE | 2021-06-22 13:42 | CASEMGMT ---
Addendum entered by Nora Love 06/22/21 13:58: prefers [facility]. Referral made. Referral made to [employer] - confirmed DME is in stock and can deliver to pt's room prior to DC. Updated family. Original Note: Social Work IDT met with patient for Team meeting. Discussed patient's progress in therapy and nursing. Pt progressing well. Pt requesting to DC home 06/23. IDT agreeable. Family having modifications completed in the home. SW to order FWW and 3-in-1 commode, C. Provided [facility] list with quality and resource data. Family to notify SW of preference. Plan: DC home with 06/23, [facility] PT/OT/SN, FWW, BSC Nora Love, PRICING ANALYST POSTAL CARRIER
[2021-06-22] MEDS: oxyCODONE 5 MG Tablet PO ×2 (14:30→20:40)
[2021-06-22 20:15] VITALS: BP 160/53; PULSE 85; RESP 18; TEMP 36.9; O2SAT 96
[2021-06-23] MEDS: oxyCODONE 5 MG Tablet PO ×2 (02:02→07:57)
[2021-06-23] MEDS: Enoxaparin 40 MG/0.4 ML Syringe SC (05:15)
[2021-06-23] MEDS: Acetaminophen 500 MG Tablet 1000 MG PO ×2 (05:16→14:20)
[2021-06-23] MEDS: Cephalexin 500 MG Capsule PO ×2 (05:16→14:20)
[2021-06-23] MEDS: Menthol/Lanolin/Calamine/Znox 113 GM Tube 1 APPLIC TOPICAL (06:34)
[2021-06-23] MEDS: Losartan Potassium 50 MG Tablet PO (07:57)
[2021-06-23] MEDS: Doxazosin 4 MG Tablet PO (07:57)
[2021-06-23] MEDS: Famotidine 20 MG Tablet PO (07:57)
[2021-06-23] MEDS: Finasteride 5 MG Tablet PO (07:57)
[2021-06-23] MEDS: amLODIPine 10 MG Tablet PO (07:57)
[2021-06-23 08:57] VITALS: BP 141/59; PULSE 82; RESP 18; TEMP 36.6; O2SAT 95
--- NOTE | 2021-06-23 11:38 | DCINST_ITS ---
Discharge Instructions Diet Discharge Diet: 4000 mg Sodium Diet Activity Discharge Activity: May Not Drive, May Shower and Use Walker Weight Bearing Status: Weight bearing as tolerated Lifting Restrictions: 5-10 lbs Keep extremity elevated above heart level: Right Leg Additional Activity Instructions:: Do the exercises given to you by the therapist at least once daily. Alternate rest and activity. Do not sit for longer than 1 hour without getting up to move around a little. Dressing / Incision Call your doctor if your incision/area has: Continuous Slow Oozing, Increased Pain/ Swelling, Increased Redness, Foul Smelling Discharge and Swelling at the incision site Call your doctor if you observe: Fever of 101 or Higher, Inability to urinate, Inability to have a bowel movement, Shortness of breath, Dizziness, Fainting spells, Chest pain, Increased palpitations (irregular heartbeat), Calf discomf ort and Uncontrolled pain Suture Line Care: Avoid Pulling/Pushing and Avoid Pinching/Bending Cleanse incision/area with: Soap & Water and - (No dressing needed) Follow Up Care Please Follow Up With: Bull Freeman Test Results: Test results from this visit will be discussed in further detail at your follow-up appointment, if applicable. Pending Tests Upon Discharge: none Discharge Plan Admission Admit Date/Time: 06/17/21 18:34 Primary Reason for Your Visit: Debility due to hip fracture/R hip hemiarthroplasty Attending Provider: Tamera Tillman Primary Care Provider: José Luis Reza Instructions Patient Instructions: After Hip Replacement: Home Safety Additional Instructions / Restrictions: 1. You were not with us very long but your have gotten stronger and you are much more stable with ambulation. Do NOT try to be an ALL STAR. Rest is important after a hip fracture and surgery. Use the walker until Dr. Freeman or the therapists at [facility] tell you to progress to a cane. Balance is more stable with a walker than a cane and we do not want you falling and displacing the hip. It will take time for the tissue to heal and the hip prosthesis to get fixed into the socket. Remember the tortoise and the hare. BE the HARE Emiliana. Safety first. 2. a. No flexing of the hip greater than 90 degrees b. Do not cross your legs c. No twisting Keeping these precautions will keep the hip from dislocating until the wound is adequately healed. 3. You will need to take 81 mg of Aspirin twice a day with food until 07/20/21. After that you can go back to 325 mg once a day. 4. Your BP has been fine off the Felodipine. I do not want to have your BP drop when you take the Felodipine and you get lightheaded and fall. The top number is just a tad high and that may be due to pain and anxiety over leaving. The bottom number is always good. Dr. Reza will tell you when to start the medication and again and it may be best to start with a lower dose than 10 mg since your BP is only a tad elevated off Felodipine. Sitting in a hot tub, maco when you are on BP pills can cause your BP to drop when you stand up and this contributes to falls and even passing out. You are still on Cozaar (losartan) and doxazosin (Cardura)for BP. Finasteride (Proscar) he can also drop your blood pressure when you go from sitting to standing. I would check the blood pressure a couple times a day at home and if the BP is > 160/[address] Paulina au for instructions. Take a record of the BP readings to Dr. Reza at your next visit. 5. You are a little anemic from blood loss with the surgery and the bleeding that occurs when you fracture a bone around the fracture. This can cause you to feel weak, fatigue easily and even get short of breath with walking......slow down and be the HARE. 6. I would like you to drink at least 1500 ml a day. That is 50 ounces. This helps keep the blood pressure from dropping when you stand up. 7. Coffee is a diuretic. If you are going to keep drinking coffee then you will need to drink more than 1500 ml a day. Coffee also causes reflux/heartburn and increased bladder irritability that leads to frequent urination and urgency......it cause bladder spasms. I would give serious consideration to limiting caffeine to a cup of tea with honey in the AM. It is very hard to get adequate sleep when you are up 10-20 times a night to urinate.......making you chronically sleep deprived and this leads to falls and confusion and memory loss. 8. DO NOT use alcohol with narcotic pain medication. DO NOT make important decisions while taking narcotic medication. Do not drive while taking narcotic medication. If you have problems while taking your medication (rash, itching, nausea etc.) call your primary care doctor. Discharge Orders/Prescriptions Prescriptions: New oxycodone 5 mg Tablet 5 - 10 mg PO Q4H PRN PRN (Reason: pain 4-10) 7 Days Qty: 60 RF: 0 sennosides-docusate sodium [Stool Softener-Stimulant Laxat] 8.6-50 mg Tablet 2 tab PO BID Qty: 56 RF: 0 aspirin 81 mg capsule 81 mg PO DAILY Qty: 40 RF: 0 Continued losartan 50 mg Tablet 50 mg PO DAILY RF: 0 famotidine 20 mg Tablet 20 mg PO BID RF: 0 doxazosin 4 mg Tablet 4 mg PO DAILY RF: 0 finasteride 5 mg Tablet 5 mg PO DAILY RF: 0 acetaminophen 500 mg tablet 1,000 mg PO Q8 RF: 0 ergocalciferol (vitamin D2) [Vitamin D2] 1,250 mcg (50,000 unit) capsule 1,250 mcg PO QWEEK RF: 0 Discontinued felodipine 10 mg Tablet Extended Release 24 Hr 10 mg PO DAILY RF: 0 oxycodone 5 mg Tablet 10 mg PO Q6H PRN PRN (Reason: Pain Score 6-10) Qty: 0 RF: 0 enoxaparin 40 mg/0.4 mL syringe 40 mg subcut DAILY@0600 RF: 0 Referrals / Follow Up: Bull Freeman DO [STAFF PHYSICIAN] - 07/08/21 12:45 pm () José Luis Reza MD [Primary Care Provider] - 07/03/21 1:35 pm (Bring discharge packet and a photo i.d. ) Disposition Disposition (needs filled in before D/C Order can be placed): Home Health Service
--- NOTE | 2021-06-23 12:15 | PCM.DC.SUM ---
Providers Date of Admission: 06/17/21 Date of Discharge: 06/23/21 Primary Care Physician: Dr. José Luis Reza MD Reason For Visit: R HIP REPAIR Diagnosis Discharge Diagnosis (1) Physical debility: Status: Acute Code(s): R53.81 - Other malaise Plan: continue therapy with [facility] (2) Fall: Code(s): W19.XXXA - Unspecified fall, initial encounter (3) Femoral neck fracture: Code(s): S72.009A - Fracture of unspecified part of neck of unspecified femur, initial encounter for closed fracture Qualifiers: Encounter type: initial encounter Fracture type: closed Laterality: right Qualified Code(s): S72.001A - Fracture of unspecified part of neck of right femur, initial encounter for closed fracture (4) History of right hip hemiarthroplasty: Status: Acute Code(s): Z96.641 - Presence of right artificial hip joint Plan: 06/15/[address] Bull Hope (5) Acute blood loss anemia: Status: Acute Code(s): D62 - Acute posthemorrhagic anemia Plan: HGB is 10.1 at MA. (6) Dehydration: Status: Acute Code(s): E86.0 - Dehydration Plan: Pt needs reminding to increase fluids. Does not drink enough water and drinks multiple cups of coffee daily. (7) Tachycardia: Status: Resolved Code(s): R00.0 - Tachycardia, unspecified Plan: Due to dehydration and this resolved with increased fluids. (8) Rash: Status: Acute Code(s): R21 - Rash and other nonspecific skin eruption Plan: More likely than not due to the detergent used to wash the sheets. It is only on his back (9) Hyponatremia: Status: Acute Code(s): E87.1 - Hypo-osmolality and hyponatremia Plan: Suspect due to dehydration. 134 at DC. (10) Hypertension: Code(s): I10 - Essential (primary) hypertension (11) Hearing deficit: Code(s): H91.90 - Unspecified hearing loss, unspecified ear (12) BPH (benign prostatic hyperplasia): Code(s): N40.0 - Benign prostatic hyperplasia without lower urinary tract symptoms Plan: Continue Cardura and Proscar. check orthostatic BP's occasionally. He is on Cozaar, doxazosin, finasteride and prior to admission Felodipine and he was orthostatic when admitted to rehab. He also is likely chronically dehydrated because he does not drink enough water and he drinks coffee all day. (13) Obstructive sleep apnea: Code(s): G47.33 - Obstructive sleep apnea (adult) (pediatric) Plan: Continue PAP when sleeping (14) Osteoarthritis: Code(s): M19.90 - Unspecified osteoarthritis, unspecified site (15) Urinary urgency: Status: Acute Code(s): R39.15 - Urgency of urination Plan: He does not retain urine and so I doubt the urgency and frequency is due to BPH. I think it is related to a high caffeine intake and I advised him to cut way back on caffeine or to discontinue. (16) Irritable bladder: Status: Acute Code(s): N32.89 - Other specified disorders of bladder Plan: suspect due to caffeine. Not ready to make a change. Counselling was given and significantly decreasing the caffeine intake was recommended. Medications at Discharge Home Medications doxazosin 4 mg PO DAILY 06/14/21 famotidine 20 mg PO BID 06/14/21 finasteride 5 mg PO DAILY 06/14/21 losartan 50 mg PO DAILY 06/14/21 acetaminophen 1,000 mg PO Q8 06/17/21 ergocalciferol (vitamin D2) [Vitamin D2] 1,250 mcg PO QWEEK 06/17/21 aspirin 81 mg PO DAILY #40 cap 06/23/21 oxycodone 5 - 10 mg PO Q4H PRN PRN 7 Days #60 tab 06/23/21 sennosides-docusate sodium [Stool Softener-Stimulant Laxat] 2 tab PO BID #56 tab 06/23/21 Hospital Course Operations - (Right hip hemiarthroplasty on 06/15/[address] Bull hope) Procedures None Summary of Care Provided Minutes Spent on Discharge: 45 Hospital Course: DORIS DAVIS, is a 75 YO M with a PMH of remote CVA with residual RLE weakness, GIFTY, BPH, erectile dysfunction, vitamin D deficiency, hypertension, osteoarthritis and hearing deficit (has a cochlear implant) who presented to the ED at [facility] on 06/14/21 c/o pain in the R hip after a fall. He was unable to bear weight on his right leg. X-ray of the right pelvis showed a transcervical femoral neck fracture on the right. He was admitted to the hospitalist service and Dr. Hope was consulted for repair. He was taken to surgery on 06/15/2021 for a right hip hemiarthroplasty. Physical therapy thought he would benefit from rehab because he required more assistance than his was able to provide. He was transferred to the inpatient acute rehab unit at [facility] on 06/17/2021 for 3 hours of therapy daily to restore function/independence at or near his prior level of function. Emiliana wanted to go home the second day he was in rehab. He had 4 steps to get into the house and his bedroom was on the second floor and he had to be able to get up 11 steps. He had no grab bars in wither of his bathrooms. He did not have a walker or an elevated toilet seat. His daughter was able to delay DC until the house could be made ready for him. He developed some mild erythema associated with increased warmth to touch in the R groin. the incision had a small amount of serosanguineous discharge. There was no odor to the discharge. This likely represented inflammation and not infection but, I chose to be cautious and he was treated with a short course of Keflex. A bed was placed on the first floor of his house and he will be using the downstairs bathroom. There is a tub/shower and he practised getting in and out of the tub prior to DC. A handrail was installed so that he could get up the 4 steps into his house and prior to DC he was able to a send/descend 5 steps of various heights with 2 handrails at contact-guard assist. He was able to ambulate 489 feet with a front wheeled walker at standby assist. He still required minimal assistance with bathing and lower body dressing. He was standby assist for toilet transfer and contact-guard assist with toileting. He needed minimal assistance with tub/shower transfer and bathing. His came in for family training to determine if she was able to provide the assistance that Emiliana needed to go home and be safe. He was discharged home on 06/23/21. Home health care for PT/OT/SN was arranged by the social insurance analyst. DME included a BSC and FWW. He will follow up with his PCP and with orthopedics post DC. Physical Exam Const alert, oriented x3, no apparent distress, average body habitus and healthy appearing Constitutional Narrative: He has better color in his face today. General Appearance: cooperative and comfortable Eyes PERRL, EOMs intact bilaterally, conjunctivae normal and no scleral icterus Eyes Narrative: No scleral icterus and no conjunctival irritation. Neck no lymphadenopathy, supple, no JVD and no carotid bruits General: trachea midline Resp normal respiratory effort, normal air movement, no use of accessory muscles and clear to auscultation bilaterally Resp Narrative: Not tachypneic and no conversational dyspnea. Effort and Inspection: able to speak in complete sentences Cardio regular rate, regular rhythm, S1 normal heart sound, S2 normal heart sound, no murmurs, no rub and no gallops GI normal to inspection, nondistended, normoactive bowel sounds, soft to palpation and non-tender GI Narrative: No BM yet. He had MOM yesterday. no CVA tenderness Back/Spine Back/Spine Narrative: Red papular rash on the back and no where else. It is pruritic. General Back: Negative for CVA tenderness Extremity normal capillary refill, no calf tenderness and no pedal edema Extremity Narrative: Small amount of ankle edema on the R. There is still considerable edema in the R groin/lateral hip area. There is resolving ecchymosis. The incision is intact with no purulent DC and no dehiscence. There is no erythema. There is mild increased warmth to touch. Skin Skin Narrative: No rashes, no skin breakdown. General Skin Exam: no breakdown Rashes: no rashes and rashes noted on the back - suspect due to the sheets/detergent maculopapular random and scattered red Wound Narrative: The incision is covered by a dressing we are not to remove yet. Neuro oriented x3, CN's II-XII intact bilaterally, no focal motor deficits and no sensory deficits noted Motor Exam: strength 5/5 throughout Psych mental status grossly normal, thought process normal and affect normal Psych Narrative: Appropriate, making good eye contact. Able to stay on topic and focus. No flight of ideas. Does not appear anxious or depressed. Conversant and relating well to staff. He is quite stubborn Weight / BMI Weight Weight: 194 lb 0.108 oz Body Mass Index (BMI) 25.6 ABG / Lab / Microbiology Data Result Diagrams: 06/19/21 05:35 06/19/21 05:35 D/C Instructions Discharge Diet: 4000 mg Sodium Diet Weight Bearing Status: Weight bearing as tolerated Keep extremity elevated above heart level: Right Leg Additional Activity Instructions: Do the exercises given to you by the therapist at least once daily. Alternate rest and activity. Do not sit for longer than 1 hour without getting up to move around a little. Call your doctor if your incision/area has: Continuous Slow Oozing, Increased Pain/ Swelling, Increased Redness, Foul Smelling Discharge and Swelling at the incision site Call your doctor if you observe: Fever of 101 or Higher, Inability to urinate, Inability to have a bowel movement, Shortness of breath, Dizziness, Fainting spells, Chest pain, Increased palpitations (irregular heartbeat), Calf discomfort and Uncontrolled pain Suture Line Care: Avoid Pulling/Pushing and Avoid Pinching/Bending Cleanse incision/area with: Soap & Water and - (No dressing needed) Pending Tests Upon Discharge: none Please Follow Up With: Bull Hope Meaningful Use Info Meaningful Use Diagnoses (Choose all that apply): None applicable Discharge Plan Admission Admit Date/Time: 06/17/21 18:34 Primary Reason for Your Visit: Debility due to hip fracture/R hip hemiarthroplasty Attending Provider: Tamera Tillman Primary Care Provider: José Luis Reza Instructions Patient Instructions: After Hip Replacement: Home Safety Additional Instructions / Restrictions: 1. You were not with us very long but your have gotten stronger and you are much more stable with ambulation. Do NOT try to be an ALL STAR. Rest is important after a hip fracture and surgery. Use the walker until Dr. Hope or the therapists at [facility] tell you to progress to a cane. Balance is more stable with a walker than a cane and we do not want you falling and displacing the hip. It will take time for the tissue to heal and the hip prosthesis to get fixed into the socket. Remember the tortoise and the hare. BE the NEALE Emiliana. Safety first. 2. a. No flexing of the hip greater than 90 degrees b. Do not cross your legs c. No twisting Keeping these precautions will keep the hip from dislocating until the wound is adequately healed. 3. You will need to take 81 mg of Aspirin twice a day with food until 07/20/21. After that you can go back to 325 mg once a day. 4. Your BP has been fine off the Felodipine. I do not want to have your BP drop when you take the Felodipine and you get lightheaded and fall. The top number is just a tad high and that may be due to pain and anxiety over leaving. The bottom number is always good. Dr. Reza will tell you when to start the medication and again and it may be best to start with a lower dose than 10 mg since your BP is only a tad elevated off Felodipine. Sitting in a hot tub, maco when you are on BP pills can cause your BP to drop when you stand up and this contributes to falls and even passing out. You are still on Cozaar (losartan) and doxazosin (Cardura)for BP. Finasteride (Proscar) he can also drop your blood pressure when you go from sitting to standing. I would check the blood pressure a couple times a day at home and if the BP is > 160/[address] Reza for instructions. Take a record of the BP readings to Dr. Reza at your next visit. 5. You are a little anemic from blood loss with the surgery and the bleeding that occurs when you fracture a bone around the fracture. This can cause you to feel weak, fatigue easily and even get short of breath with walking......slow down and be the HARE. 6. I would like you to drink at least 1500 ml a day. That is 50 ounces. This helps keep the blood pressure from dropping when you stand up. 7. Coffee is a diuretic. If you are going to keep drinking coffee then you will need to drink more than 1500 ml a day. Coffee also causes reflux/heartburn and increased bladder irritability that leads to frequent urination and urgency......it cause bladder spasms. I would give serious consideration to limiting caffeine to a cup of tea with honey in the AM. It is very hard to get adequate sleep when you are up 10-20 times a night to urinate.......making you chronically sleep deprived and this leads to falls and confusion and memory loss. 8. DO NOT use alcohol with narcotic pain medication. DO NOT make important decisions while taking narcotic medication. Do not drive while taking narcotic medication. If you have problems while taking your medication (rash, itching, nausea etc.) call your primary care doctor. Discharge Orders/Prescriptions Prescriptions: New oxycodone 5 mg Tablet 5 - 10 mg PO Q4H PRN PRN (Reason: pain 4-10) 7 Days Qty: 60 RF: 0 sennosides-docusate sodium [Stool Softener-Stimulant Laxat] 8.6-50 mg Tablet 2 tab PO BID Qty: 56 RF: 0 aspirin 81 mg capsule 81 mg PO DAILY Qty: 40 RF: 0 Continued losartan 50 mg Tablet 50 mg PO DAILY RF: 0 famotidine 20 mg Tablet 20 mg PO BID RF: 0 doxazosin 4 mg Tablet 4 mg PO DAILY RF: 0 finasteride 5 mg Tablet 5 mg PO DAILY RF: 0 acetaminophen 500 mg tablet 1,000 mg PO Q8 RF: 0 ergocalciferol (vitamin D2) [Vitamin D2] 1,250 mcg (50,000 unit) capsule 1,250 mcg PO QWEEK RF: 0 Discontinued felodipine 10 mg Tablet Extended Release 24 Hr 10 mg PO DAILY RF: 0 oxycodone 5 mg Tablet 10 mg PO Q6H PRN PRN (Reason: Pain Score 6-10) Qty: 0 RF: 0 enoxaparin 40 mg/0.4 mL syringe 40 mg subcut DAILY@0600 RF: 0 Referrals / Follow Up: Bull Hope DO [STAFF PHYSICIAN] - 07/08/21 12:45 pm () José Luis Reza MD [Primary Care Provider] - 07/03/21 1:35 pm (Bring discharge packet and a photo i.d. ) Disposition Disposition (needs filled in before D/C Order can be placed): Home Health Service Charges/Coding Visit Charges Inpatient E&M: [id number] Disch Hosp
[2021-06-23 15:49] VITALS: BP 141/59; PULSE 82; RESP 18; TEMP 36.6; O2SAT 95
--- NOTE | 2021-06-23 15:51 | NURSING ---
discharged home with family. discharged instructions, medications and appointments reviewed with pt and family. denies questions or concerns
== END 2021-06-23 15:40 | disposition home health service (06) | DRG 560 ==
PROVIDERS: Admitting Provider Internal Medicine; PCP Internal Medicine; Visit Provider Internal Medicine
DX: S72.001D Fracture of unspecified part of neck of right femur, subsequent encounter for closed fracture with routine healing (principal); I69.351 Hemiplegia and hemiparesis following cerebral infarction affecting right dominant side; D62 Acute posthemorrhagic anemia; W19.XXXD Unspecified fall, subsequent encounter; G47.33 Obstructive sleep apnea (adult) (pediatric); N40.0 Benign prostatic hyperplasia without lower urinary tract symptoms; E55.9 Vitamin D deficiency, unspecified; I10 Essential (primary) hypertension; R21 Rash and other nonspecific skin eruption; M19.90 Unspecified osteoarthritis, unspecified site; Z79.899 Other long term (current) drug therapy; Z87.891 Personal history of nicotine dependence
CPT/HCPCS: 36415; 80048; 85027; 97110; 97116; 97162; 97166; 97530; 97535; 97802; 99251; G0463